=== PATIENT | female | born 1960 | race Caucasian/White ===

== ENCOUNTER → 2017-01-15 | Outpatient (CLI) | payer BC ==
--- NOTE | 2017-01-16 11:42 | MM ---
Reason for exam: screening (asymptomatic). Last mammogram was performed 1 year and 5 months ago. History: Patient is postmenopausal. Family history of breast cancer in maternal grandmother at age 60 and breast cancer in mother at age 65. Took hormonal contraceptives for 3 years beginning at age 43. Physical Findings: A clinical breast exam by your physician is recommended on an annual basis and results should be correlated with mammographic findings. MG Screening Mammo w CAD Bilateral CC and MLO view(s) were taken. Prior study comparison: August 07, 2015, bilateral MG screening mammo w CAD. June 26, 2014, bilateral MG screening mammo w CAD. There are scattered fibroglandular densities. Stable benign calcifications in the left breast. Stable focal asymmetry in the left breast since 2012. No significant changes when compared with prior studies. ASSESSMENT: Benign, BI-RAD 2 RECOMMENDATION: Routine screening mammogram of both breasts in 1 year.
== END ==
LOC: RADMAMWWP 15:52
PROVIDERS: ATTEND Family Medicine
DX: Z12.31 Encounter for screening mammogram for malignant neoplasm of breast (principal)

== ENCOUNTER → 2017-12-22 | Outpatient (CLI) | payer BC ==
--- NOTE | 2017-12-23 11:33 | BD ---
EXAMINATION TYPE: Axial Bone Density DATE OF EXAM: 12/22/2017 COMPARISON: 06.26.2014 CLINICAL HISTORY: 57 YR OLD FEMALE.....ICD-10 CODE: M81.0 AGE RELATED OSTEOPOROSIS Height: 61.8 Weight: 110 FRAX RISK QUESTIONS: Family History (Parent hip fracture): YES Glucocorticoids (More than 3mos): YES (Ex: prednisone, prednisolone, methylprednisolone, dexamethasone, and hydrocortisone). RISK FACTORS HISTORY OF: Family History of Osteoporosis: YES, MOTHER WITH HIP FXS Active: YES Diet low in dairy products/other sources of calcium: YES Postmenopausal woman: YES, LATE 40s MEDICATIONS: Prednisone or other steroids: ASTHMA INHALER How Lon YRS Osteoporosis Medications: ACTENOL How Long: FOR ABOUT 5 YRS Additional Medications: CYMBALTA, ANTI ANXIETY MED, VIT D3, Additional History: ANXIETY, ASTHMA EXAM MEASUREMENTS: Bone mineral densitometry was performed using the [employer] System. Bone mineral density as measured about the Lumbar spine is: ----- L1-L4(G/cm2): 0.897 T Score Values are as follows: ----- L1: -2.1 ----- L2: -2.7 ----- L3: -2.4 ----- L4: -2.3 ----- L1-L4: -2.4 Bone mineral density has: Decreased -0.7% SINCE 06.26.2014 Bone mineral density about the R hip (g/cm2): 0.684 Bone mineral density about the L hip (g/cm2): 0.715 T Score values are as follows: -----R Neck: -3.0 -----L Neck: -2.3 -----R Total: -2.3 -----L Total: -2.6 Bone mineral density has: Decreased -8.1% SINCE 06.26.2014 FRAX%S: THERE IS A 33.9% CHANCE OF A MAJOR OSTEOPOROTIC FX AND A 7.1% CHANCE FOR HIP FX.....PROBAB ILITY OF FX IN 10 YRS TIME IMPRESSION: 1. Osteoporosis left hip and near osteoporosis of the lumbar spine and right hip. High fracture risk. NOTE: T-SCORE=SD OF THE YOUNG ADULT MEAN.
== END | disposition home or self-care (01) ==
LOC: RADBDWWP 14:59
PROVIDERS: ATTEND Family Medicine
DX: M81.0 Age-related osteoporosis without current pathological fracture (principal)
CPT/HCPCS: 77080

== ENCOUNTER → 2018-04-05 | Outpatient (CLI) | payer BC ==
--- NOTE | 2018-04-07 09:33 | MM ---
Reason for exam: screening (asymptomatic). Last mammogram was performed 1 year and 3 months ago. History: Patient is postmenopausal. Family history of breast cancer in maternal grandmother at age 60 and breast cancer in mother at age 65. Took hormonal contraceptives for 3 years beginning at age 43. Physical Findings: A clinical breast exam by your physician is recommended on an annual basis and results should be correlated with mammographic findings. MG 3D Screening Mammo W/Cad Bilateral CC and MLO view(s) were taken. Prior study comparison: January 15, 2017, bilateral MG screening mammo w CAD. August 07, 2015, bilateral MG screening mammo w CAD. There are scattered fibroglandular densities. Stable fat necrosis and focal asymmetry left upper outer quadrant. Lateral subareolar left focal asymmetry increased. Stable on the right. ASSESSMENT: Incomplete: need additional imaging evaluation, BI-RAD 0 RECOMMENDATION: Special view mammogram of the left breast. If lesion persists on supplemental views, image directed ultrasound is recommended. [facility] will attempt to contact patient to return for supplemental views and ultrasound if indicated.
== END ==
LOC: RADMAMWWP 14:57
PROVIDERS: ATTEND Family Medicine
DX: Z12.31 Encounter for screening mammogram for malignant neoplasm of breast (principal)
CPT/HCPCS: 77063; 77067

== ENCOUNTER → 2018-04-14 | Outpatient (CLI) | payer BC ==
--- NOTE | 2018-04-15 09:26 | MM ---
Reason for exam: additional evaluation requested from abnormal screening. Last mammogram was performed less than 1 month ago. History: Patient is postmenopausal. Family history of breast cancer in maternal grandmother at age 60 and breast cancer in mother at age 65. Took hormonal contraceptives for 3 years beginning at age 43. Physical Findings: Nurse did not find any significant physical abnormalities on exam. MG 3D Work Up W/Cad LT CC and MLO view(s) were taken of the left breast. Prior study comparison: April 05, 2018, bilateral MG 3d screening mammo w/cad. January 15, 2017, bilateral MG screening mammo w CAD. Focal asymmetry left retroareolar region. Ultrasound is recommended. These results were verbally communicated with the patient and result sheet given to the patient on 04/14/18. ASSESSMENT: Incomplete: need additional imaging evaluation, BI-RAD 0 RECOMMENDATION: Ultrasound of the left breast.
--- NOTE | 2018-04-15 09:34 | USB ---
Reason for exam: additional evaluation requested from abnormal screening. History: Patient is postmenopausal. Family history of breast cancer in maternal grandmother at age 60 and breast cancer in mother at age 65. Took hormonal contraceptives for 3 years beginning at age 43. US Breast Workup Limited LT Left limited breast ultrasound including focal area of concern, retroareolar and axilla demonstrates a 4 x 2 x 4mm oval, cystic lesion at 1 o'clock and duct ectasia at the posterior nipple. These results were verbally communicated with the patient and result sheet given to the patient on 04/14/18. ASSESSMENT: Probably benign, BI-RAD 3 RECOMMENDATION: Follow-up diagnostic mammogram of the left breast in 6 months.
== END | disposition home or self-care (01) ==
LOC: RADMAMWWP 15:00
PROVIDERS: ATTEND Family Medicine
DX: R92.8 Other abnormal and inconclusive findings on diagnostic imaging of breast (principal)
CPT/HCPCS: 77061; 77065

== ENCOUNTER → 2018-10-29 | Outpatient (CLI) | payer OTHER ==
--- NOTE | 2018-11-01 10:07 | MM ---
Reason for exam: follow-up at short interval from prior study. Last mammogram was performed 7 months ago. History: Patient is postmenopausal. Family history of breast cancer in maternal grandmother at age 60 and breast cancer in mother at age 65. Took hormonal contraceptives for 3 years beginning at age 43. Physical Findings: Nurse did not find any significant physical abnormalities on exam. MG 3D Diag Mammo W/Cad LT CC, MLO, spot compression CC, and spot compression ML view(s) were taken of the left breast. Prior study comparison: April 14, 2018, left breast MG 3d work up w/cad LT. April 05, 2018, bilateral MG 3d screening mammo w/cad. The breast tissue is heterogeneously dense. This may lower the sensitivity of mammography. Stable benign calcifications. Improved retroareolar density left breast. These results were verbally communicated with the patient and result sheet given to the patient on 10/29/18. ASSESSMENT: Benign, BI-RAD 2 RECOMMENDATION: Return to routine screening mammogram schedule for both breasts. Back on schedule.
== END | disposition home or self-care (01) ==
LOC: RADMAMWWP 15:40
PROVIDERS: ATTEND Family Medicine
DX: R92.8 Other abnormal and inconclusive findings on diagnostic imaging of breast (principal)
CPT/HCPCS: 77061; 77065

== ENCOUNTER → 2021-05-20 | Outpatient (CLI) | payer OTHER ==
--- NOTE | 2021-05-22 10:30 | MM ---
Reason for exam: screening (asymptomatic). Last mammogram was performed 2 years and 7 months ago. History: Patient is postmenopausal. Family history of breast cancer in maternal grandmother at age 60 and breast cancer in mother at age 65. Took hormonal contraceptives for 3 years beginning at age 43. Physical Findings: A clinical breast exam by your physician is recommended on an annual basis and results should be correlated with mammographic findings. MG 3D Screening Mammo W/Cad Bilateral CC and MLO view(s) were taken. Prior study comparison: October 29, 2018, left breast MG 3d diag mammo w/cad LT. April 14, 2018, left breast MG 3d work up w/cad LT. April 05, 2018, bilateral MG 3d screening mammo w/cad. January 15, 2017, bilateral MG screening mammo w CAD. There are scattered fibroglandular densities. Finding: There is an equal, indistinct architectural distortion in the upper outer quadrant, middle position of the left breast. New finding since October 29, 2018, April 14, 2018, April 05, 2018, and January 15, 2017. ASSESSMENT: Incomplete: need additional imaging evaluation, BI-RAD 0 RECOMMENDATION: Special view mammogram of the left breast. If lesion persists on supplemental views, image directed ultrasound is recommended. [facility] will attempt to contact patient to return for supplemental views and ultrasound if indicated.
== END | disposition home or self-care (01) ==
LOC: RADMAMWWP 14:53
PROVIDERS: ATTEND Family Medicine
DX: Z12.31 Encounter for screening mammogram for malignant neoplasm of breast (principal); Z80.3 Family history of malignant neoplasm of breast
CPT/HCPCS: 77063; 77067

== ENCOUNTER → 2021-05-29 | Outpatient (CLI) | payer OTHER ==
--- NOTE | 2021-05-30 12:19 | MM ---
Reason for exam: additional evaluation requested from abnormal screening. Last mammogram was performed less than 1 month ago. History: Patient is postmenopausal. Family history of breast cancer in maternal grandmother at age 60 and breast cancer in mother at age 65. Took hormonal contraceptives for 3 years beginning at age 43. Physical Findings: Nurse did not find any significant physical abnormalities on exam. MG 3D Work Up W/Cad LT Spot compression CC, spot compression MLO, and LM view(s) were taken of the left breast. Prior study comparison: May 20, 2021, bilateral MG 3d screening mammo w/cad. October 29, 2018, left breast MG 3d diag mammo w/cad LT. April 14, 2018, left breast MG 3d work up w/cad LT. April 05, 2018, bilateral MG 3d screening mammo w/cad. There are scattered fibroglandular densities. Questioned distortion upper outer quadrant does not clearly persist on additional views. Course calcifications here are similar. Density likely more pronounced due to C-view technique. These results were verbally communicated with the patient and result sheet given to the patient on 05/29/21. ASSESSMENT: Probably benign, BI-RAD 3 RECOMMENDATION: Follow-up diagnostic mammogram of the left breast in 6 months.
== END | disposition home or self-care (01) ==
LOC: RADMAMWWP 14:49
PROVIDERS: ATTEND Family Medicine
DX: R92.1 Mammographic calcification found on diagnostic imaging of breast (principal); Z80.3 Family history of malignant neoplasm of breast
CPT/HCPCS: 77061; 77065

== ENCOUNTER → 2022-02-05 | Outpatient (CLI) | payer OTHER ==
--- NOTE | 2022-02-05 15:27 | BD ---
EXAMINATION TYPE: Axial Bone Density DATE OF EXAM: 02/05/2022 COMPARISON: NONE CLINICAL HISTORY: 61 years year old Female. ICD-10 CODE: M85.88 OTH DISRD OF BONE DENSITY AND STRUCT URE Height: 5 FT 2 IN Weight: 116 FRAX RISK QUESTIONS: Alcohol (3 or more units per day): NO Family History (Parent hip fracture): YES Glucocorticoids (More than 3mos): YES (Ex: prednisone, prednisolone, methylprednisolone, dexamethasone, and hydrocortisone). History of Fracture in Adulthood: NO Secondary Osteoporosis: 1. Type 1 Diabetes: NO 2. Hyperthyroidism: NO 3. Menopause before 45: NO 4. Malnutrition: NO 5. Chronic liver disease: NO Rheumatoid Arthritis: YES Current Tobacco Use: MARIJUANA RISK FACTORS HISTORY OF: Surgery to Spine/Hip(right/left)/Wrist (right/left): NO Family History of Osteoporosis: YES Active: YES Diet low in dairy products/other sources of calcium: NO Postmenopausal woman: YES Take estrogen and/or progesterone medications: NO Lost more than 2 inches in height since high school:NO Frequent falls: NO Poor Health: FIBROMYALGIA Hyperparathyroidism: NO Adrenal Insufficiency: NO MEDICATIONS: Additional Medications: FLOMAX, INHALER, FLEXER ALL, CLONOPIN, VELSOMRA , Additional History: ASTHMA EXAM MEASUREMENTS: Bone mineral densitometry was performed using the [employer] System. Bone mineral density as measured about the Lumbar spine is: ----- L1-L4(G/cm2): 0.821 T Score Values are as follows: ----- L1: -2.9 ----- L2: -3.0 ----- L3: -2.9 ----- L4: -3.2 ----- L1-L4: -3.0 Bone mineral density has: DECREASED -7.7 % since study of: 2018 Bone mineral density about the R hip (g/cm2): 0.650 Bone mineral density about the L hip (g/cm2): 0.580 T Score values are as follows: -----R Neck: -2.8 -----L Neck: -3.3 -----R Total: -2.6 -----L Total: -2.7 Bone mineral density has: DECREASED -4.0 % since study of: 2018 FRAX%s: The graph provided illustrates a 41.9 % chance for a major osteoporotic fx and a 11.4 % chanc e for the hips probability for fx in 10 years time. IMPRESSION: Osteoporosis (T Score less than -2.5). There is increased fracture risk and therapy is usually indicated based on age. Re-Screen 1-2 years. NOTE: T-SCORE=SD OF THE YOUNG ADULT MEAN.
== END | disposition home or self-care (01) ==
LOC: RADBDWWP 14:01
PROVIDERS: ATTEND Internal Medicine
DX: M81.0 Age-related osteoporosis without current pathological fracture (principal)
CPT/HCPCS: 77080

== ENCOUNTER → 2022-02-05 | Outpatient (CLI) | payer OTHER ==
--- NOTE | 2022-02-05 14:36 | MM ---
Reason for Exam: Follow-up at short interval from prior study. Last screening mammogram was performed 8 month(s) ago. Patient History: Menarche at age 10. First Full-Term at age 25. Left ovary removed at age 54. Right ovary removed at age 54. Hysterectomy at age 54. Postmenopausal. Hormonal Contraceptives for 3 years from age 43 until age 46. Maternal grandmother had breast cancer, age 60. Mother had breast cancer, age 65. Risk Values: Latrice 5 year model risk: 3.1%. NCI Lifetime model risk: 12.8%. Prior Study Comparison: 10/29/2018 Left Diagnostic Mammogram, [facility]. 05/20/2021 Bilateral Screening Mammogram, [facility]. 05/29/2021 Left Diagnostic Mammogram, [facility]. Tissue Density: Left: The breast tissue is heterogeneously dense. This may lower the sensitivity of mammography. Findings: Analyzed By CAD. Persistent asymmetric density upper outer left breast unchanged. Benign calcifications left breast are stable as well. Overall Assessment: Benign, BI-RAD 2 Management: Screening Mammogram of both breasts in 6 months. A clinical breast exam by your physician is recommended on an annual basis and results should be correlated with mammographic findings. This exam should not preclude additional follow-up of suspicious palpable abnormalities. Results were given to the patient verbally at the time of exam. Electronically signed and approved by: Hung Earl M.D. Radiologis
== END | disposition home or self-care (01) ==
LOC: RADMAMWWP 13:59
PROVIDERS: ATTEND Family Medicine
DX: R92.8 Other abnormal and inconclusive findings on diagnostic imaging of breast (principal); Z78.0 Asymptomatic menopausal state; Z80.3 Family history of malignant neoplasm of breast
CPT/HCPCS: 77061; 77065

== ENCOUNTER 2023-02-25 15:49 | Emergency (ER) | payer MEDICARE, OTHER ==
[2023-02-25 15:59] VITALS: BP 177/87; PULSE 87; TEMP 98.1
[2023-02-25 16:28] VITALS: RESP 18
--- NOTE | 2023-02-25 16:35 | XR ---
EXAMINATION TYPE: XR chest 2V DATE OF EXAM: 02/25/2023 4:29 PM COMPARISON: Chest radiographs from 06/11/2018 TECHNIQUE: XR chest 2V Frontal and lateral views of the chest. CLINICAL INDICATION:Female, 63 years old with history of Difficulty breathing ; FINDINGS: Lungs/Pleura: Hyperinflation. No evidence of pneumothorax, pleural effusion or focal consolidation. Pulmonary vascularity: Unremarkable. Heart/mediastinum: Cardiomediastinal silhouette is unremarkable. Musculoskeletal: No acute osseous pathology. Mild levoscoliotic curvature of the thoracic spine. IMPRESSION: 1. No acute cardiopulmonary disease process. 2. Hyperinflation which can be seen with asthma versus COPD.
--- NOTE | 2023-02-25 18:15 | ED ---
General Adult HPI - General Chief complaint: Shortness of Breath Stated complaint: SOB Time Seen by Provider: 02/25/23 15:55 Source: patient, RN notes reviewed, old records reviewed Mode of arrival: ambulatory Limitations: no limitations - History of Present Illness Initial comments: This a 63-year-old female who claims that she has fibromyalgia and as a child had asthma. Patient states she's been having difficulty breathing every day at 3 AM. Patient states that she can't take steroids she can have albuterol treatments and she can't take any milk products because all those give her problems with breathing. Patient states she's had no fever she states she's had no cough but every day at 3:00 in the morning she wakes up and has a difficult time breathing. Patient is hyperverbal throughout the ER visit. Patient denies any chest pain patient denies any abdominal pain. - Related Data Home Medications Medication Instructions Recorded Confirmed Ipratropium [place] [Ipratropium 2 spray NASAL BID 02/25/23 02/25/23 [place] 0.03%] Allergies Allergy/AdvReac Type Severity Reaction Status Date / Time gluten Allergy Severe Unknown Verified 02/25/23 16:29 Review of Systems ROS Statement: Those systems with pertinent positive or pertinent negative responses have been documented in the HPI. ROS Other: All systems not noted in ROS Statement are negative. Past Medical History Past Medical History: Asthma, Fibromyalgia Additional Past Medical History / Comment(s): Celiac History of Any Multi-Drug Resistant Organisms: None Reported Past Surgical History: Hysterectomy Past Psychological History: Anxiety Smoking Status: Never smoker Past Alcohol Use History: None Reported Past Drug Use History: Marijuana General Exam - General Exam Comments Initial Comments: GENERAL: Patient is well-developed and well-nourished. Patient is nontoxic and well- hydrated and is in no acute distress. ENT: Neck is soft and supple. No significant lymphadenopathy is noted. Oropharynx is clear. Moist mucous membranes. Neck has full range of motion without eliciting any pain. EYES: The sclera were anicteric and conjunctiva were pink and moist. Extraocular movements were intact and pupils were equal round and reactive to light. Eyelids were unremarkable. PULMONARY: Unlabored respirations. Good breath sounds bilaterally. No audible rales rhonchi or wheezing was noted. CARDIOVASCULAR: There is a regular rate and rhythm without any murmurs gallops or rubs. ABDOMEN: Soft and nontender with normal bowel sounds. No palpable organomegaly was noted. There is no palpable pulsatile mass. SKIN: Skin is clear with no lesions or rashes and otherwise unremarkable. NEUROLOGIC: Patient is alert and oriented x3. Cranial nerves II through XII are grossly intact. Motor and sensory are also intact. Normal speech, volume and content. Symmetrical smile. MUSCULOSKELETAL: Normal extremities with adequate strength and full range of motion. LYMPHATICS: No significant lymphadenopathy is noted PSYCHIATRIC: Patient is very anxious and is talking and a mild minute without any respiratory distress. Patient has a lot of tangential thoughts thinking maybe it could be from some milk product they got into her system or may be some alcohol that was in some medication. Patient believes she has all these sensitivity secondary to fibromyalgia. Limitations: no limitations Course Vital Signs 02/25/23 02/25/23 15:55 16:27 Temperature 98.1 F Pulse Rate 87 Respiratory 24 18 Rate Blood Pressure 177/87 O2 Sat by Pulse 97 Oximetry Medical Decision Making - Medical Decision Making Was pt. sent in by a medical professional or institution (, PA, DIESEL TECHNICIAN MECHANIC, urgent care, hospital, or [facility]...) When possible be specific @ -No Did you speak to anyone other than the patient for history (EMS, parent, family, police, friend...)? What history was obtained from this source @ -No Did you review nursing and triage notes (agree or disagree)? Why? @ -I reviewed and agree with nursing and triage notes Were old charts reviewed (outside hosp., previous admission, EMS record, old EKG, old radiological studies, urgent care reports/EKG's, [facility] records)? Report findings @ -No old charts were reviewed Differential Diagnosis (chest pain, altered mental status, abdominal pain women, abdominal pain men, vaginal bleeding, weakness, fever, dyspnea, syncope, headache, dizziness, GI bleed, back pain, seizure, CVA, palpatations, mental health, musculoskeletal)? @ -Differential Dyspnea: Coronary syndrome, arrhythmia, tamponade, asthma, COPD, pulmonary embolism, pneumonia, pneumothorax, pulmonary effusion, anaphylaxis, diabetic ketoacidosis, flailed chest, pulmonary contusion, diaphragmatic rupture, anemia, neuromuscular, this is not meant to be an all-inclusive list. EKG interpreted by me (3pts min.). @ -As above X-rays interpreted by me (1pt min.). @ -Chest x-ray shows no acute abnormality CT interpreted by me (1pt min.). @ -None done U/S interpreted by me (1pt. min.). @ -None done What testing was considered but not performed or refused? (CT, X-rays, U/S, labs)? Why? @ -None What meds were considered but not given or refused? Why? @ -None Did you discuss the management of the patient with other professionals (professionals i.e. , PA, DIESEL TECHNICIAN MECHANIC, lab, RT, psych nurse, clinical social work aide, egg crater, teacher, chief safety officer, case fitter)? Give summary @ -No Was smoking cessation discussed for >3mins.? @ -No Was critical care preformed (if so, how long)? @ -No Were there social determinants of health that impacted care today? How? (Homelessness, low income, unemployed, alcoholism, drug addiction, transportati on, low edu. Level, literacy, decrease access to med. care, retirement, rehab)? @ -No Was there de-escalation of care discussed even if they declined (Discuss DNR or withdrawal of care, Hospice)? DNR status @ -No What co-morbidities impacted this encounter? (DM, HTN, Smoking, COPD, CAD, Cancer, CVA, ARF, Chemo, Hep., AIDS, mental health diagnosis, sleep apnea, morbid obesity)? @ -None Was patient admitted / discharged? Hospital course, mention meds given and route, prescriptions, significant lab abnormalities, going to OR and other pertinent info. @ -I went back into the room and gave the patient the checks x-ray results she had stable vitals oxygenating well and in no apparent distress. Patient since I left the room had determined that she had taken some [place]k fruit 2 weeks ago and she believes now that is the cause of all of her problems. I indicated to her I did not think that the Monk fruit was still in her system. She was very upset that I did not believe that the Monk fruit was causing her symptoms from 2 weeks ago. She refused to accept an inhaler prescription because she states the inhaler has alcohol and she cannot take anything with alcohol in it. Patient stormed out of the emergency department leaving AMA Undiagnosed new problem with uncertain prognosis? @ -No Drug Therapy requiring intensive monitoring for toxicity (Heparin, Nitro, Insulin, Cardizem)? @ -No Were any procedures done? @ -No Diagnosis/symptom? @ -Anxiety Acute, or Chronic, or Acute on Chronic? @ -Acute Uncomplicated (without systemic symptoms) or Complicated (systemic symptoms)? @ -Uncomplicated Side effects of treatment? @ -No Exacerbation, Progression, or Severe Exacerbation? @ -No Poses a threat to life or bodily function? How? (Chest pain, [place], [place], pneumonia, PE, COPD, DKA, ARF, appy, cholecystitis, CVA, Diverticulitis, Homicidal, Suicidal, threat to staff... and all critical care pts) @ -No Disposition Clinical Impression: Anxiety Disposition: LEFT AGAINST MEDICAL ADVICE Instructions (If sedation given, give patient instructions): Generalized Anxiety Disorder (ED) Is patient prescribed a controlled substance at d/c from ED?: No Referrals: Elvia López MD [Primary Care Provider] - 1-2 days Time of Disposition: 18:15
== END 2023-02-25 18:23 | disposition left against medical advice (07) ==
LOC: EC 15:49
DX: F41.9 Anxiety disorder, unspecified (principal); J45.909 Unspecified asthma, uncomplicated; F12.90 Cannabis use, unspecified, uncomplicated; Z88.8 Allergy status to other drugs, medicaments and biological substances; Z53.29 Procedure and treatment not carried out because of patient's decision for other reasons
CPT/HCPCS: 71046; 99284

== ENCOUNTER 2023-03-05 17:33 | Observation (INO) | payer MEDICARE ==
--- NOTE | 2023-03-05 19:06 | ED ---
General Adult HPI - General Chief complaint: Chest Pain Stated complaint: edema, heart palpitations, pain in chest, sob Time Seen by Provider: 03/05/23 18:30 Source: patient Mode of arrival: ambulatory Limitations: no limitations - History of Present Illness Initial comments: Layne is a 63-year-old female presents the emergency department today for evalu ation of multiple complaints. Patient reports that over the past 2 months she's been experiencing paroxysmal nocturnal dyspnea, orthopnea, lower extremity edema. She has a nonproductive cough. She occasionally has tightness in her chest and occasionally sharp pains in her chest. She has no known cardiac history. She does have a family history of cardiac disease. She is a former smoker. - Related Data Home Medications Medication Instructions Recorded Confirmed Ipratropium [place] [Ipratropium 2 spray NASAL BID 02/25/23 02/25/23 [place] 0.03%] Allergies Allergy/AdvReac Type Severity Reaction Status Date / Time gluten Allergy Severe Unknown Verified 03/05/23 21:25 Review of Systems ROS Statement: Those systems with pertinent positive or pertinent negative responses have been documented in the HPI. ROS Other: All systems not noted in ROS Statement are negative. Past Medical History Past Medical History: Asthma, Fibromyalgia Additional Past Medical History / Comment(s): Celiac History of Any Multi-Drug Resistant Organisms: None Reported Past Surgical History: Hysterectomy Past Psychological History: Anxiety Smoking Status: Never smoker Past Alcohol Use History: None Reported Past Drug Use History: Marijuana General Exam - General Exam Comments Initial Comments: Physical Exam GENERAL: Patient is well-developed and well-nourished. Patient is nontoxic and well- hydrated and is in no distress. HENT: Normocephalic, Atraumatic. EYES: PERRL, EOMI PULMONARY: Mild expiratory wheezing noted CARDIOVASCULAR: There is a regular rate and rhythm without any murmurs gallops or rubs. 1+ pitting edema bilateral lower extremities ABDOMEN: Soft and nontender with normal bowel sounds. SKIN: Skin is clear with no lesions or rashes and otherwise unremarkable. : Deferred NEUROLOGIC: Patient is alert and oriented x3. Moving all extremities spontaneously MUSCULOSKELETAL: Normal extremities with adequate strength and full range of motion PSYCHIATRIC: Normal psychiatric evaluation. Limitations: no limitations Course Vital Signs 03/05/23 03/05/23 18:00 20:30 Temperature 98.6 F Pulse Rate 89 97 Respiratory 20 20 Rate Blood Pressure 177/81 168/92 O2 Sat by Pulse 96 93 L Oximetry EKG Findings - EKG Comments: EKG Findings:: EKG was interpreted by me, EKG was obtained due to shortness of breath and intermittent chest pain. EKG was obtained at 1810, EKG with rate of 82 sinus rhythm pulmonary pattern, no acute ST elevations or depressions or evidence of acute ischemia or infarction. Medical Decision Making - Medical Decision Making Was pt. sent in by a medical professional or institution (, PA, LICENSED AUDIOLOGIST, urgent care, hospital, or long-term...) When possible be specific @ -Sent by primary care provider Did you speak to anyone other than the patient for history (EMS, parent, family, police, friend...)? What history was obtained from this source @ - Did you review nursing and triage notes (agree or disagree)? Why? @ -I reviewed and agree with nursing and triage notes Were old charts reviewed (outside hosp., previous admission, EMS record, old EKG, old radiological studies, urgent care reports/EKG's, long-term records)? Report findings @ -No old charts were reviewed Differential Diagnosis (chest pain, altered mental status, abdominal pain women, abdominal pain men, vaginal bleeding, weakness, fever, dyspnea, syncope, headache, dizziness, GI bleed, back pain, seizure, CVA, palpatations, mental health, musculoskeletal)? @ -Differential Chest Pain: Stable Angina, Unstable Angina, STEMI, NSTEMI Aortic Dissection, Pneumothorax, Musculoskeletal, Esophageal Spasm GERD, Cholecystitis, Pancreatitis, Zoster, this is not meant to be an all-inclusive list. Differential Dyspnea: Coronary syndrome, arrhythmia, tamponade, asthma, COPD, pulmonary embolism, pneumonia, pneumothorax, pulmonary effusion, anaphylaxis, diabetic ketoacidosis, flailed chest, pulmonary contusion, diaphragmatic rupture, anemia, neuromuscular, this is not meant to be an all-inclusive list. EKG interpreted by me (3pts min.). @ -As above X-rays interpreted by me (1pt min.). @ -No pleural effusions, no pneumothorax no obvious consolidations CT interpreted by me (1pt min.). @ -None done U/S interpreted by me (1pt. min.). @ -None done What testing was considered but not performed or refused? (CT, X-rays, U/S, labs)? Why? @ -Echo, can be performed and patient What meds were considered but not given or refused? Why? @ -None Did you discuss the management of the patient with other professionals (professionals i.e. , PA, LICENSED AUDIOLOGIST, lab, RT, psych nurse, social work faculty member, detective bureau chief, teacher, probation officer, vocational case manager)? Give summary @ -No Was smoking cessation discussed for >3mins.? @ -No Was critical care preformed (if so, how long)? @ -No Were there social determinants of health that impacted care today? How? (Homelessness, low income, unemployed, alcoholism, drug addiction, transportation, low edu. Level, literacy, decrease access to med. care, care home, r ehab)? @ -No Was there de-escalation of care discussed even if they declined (Discuss DNR or withdrawal of care, Hospice)? DNR status @ -No What co-morbidities impacted this encounter? (DM, HTN, Smoking, COPD, CAD, Cancer, CVA, ARF, Chemo, Hep., AIDS, mental health diagnosis, sleep apnea, morbid obesity)? @ -None Was patient admitted / discharged? Hospital course, mention meds given and route, prescriptions, significant lab abnormalities, going to OR and other pertinent info. @ -The patient was seen and evaluated history was obtained from patient history is concerning for possible CHF patient does have some wheezing DuoNeb's were given. Labs are unremarkable however given the patient's history and symptoms decision made to place in observation for echo and cardiac evaluation. Undiagnosed new problem with uncertain prognosis? @ -No Drug Therapy requiring intensive monitoring for toxicity (Heparin, Nitro, Insulin, Cardizem)? @ -No Were any procedures done? @ -No Diagnosis/symptom? @ -Dyspnea Acute, or Chronic, or Acute on Chronic? @ -default Uncomplicated (without systemic symptoms) or Complicated (systemic symptoms)? @ -default Side effects of treatment? @ -No Exacerbation, Progression, or Severe Exacerbation? @ -No Poses a threat to life or bodily function? How? (Chest pain, [place], OR, pneumonia, PE, COPD, DKA, ARF, appy, cholecystitis, CVA, Diverticulitis, Homicidal, Suicidal, threat to staff... and all critical care pts) @ -No - Lab Data Result diagrams: 03/05/23 19:00 03/05/23 19:00 Lab Results 03/05/23 03/05/23 03/05/23 Range/Units 19:00 19:00 19:00 WBC 10.3 (3.8-10.6) k/uL RBC 4.99 (3.80-5.40) m/uL Hgb 15.9 (11.4-16.0) gm/dL Hct 47.7 H (34.0-46.0) % MCV 95.5 (80.0-100.0) fL MCH 31.9 (25.0-35.0) pg MCHC 33.4 (31.0-37.0) g/dL RDW 12.2 (11.5-15.5) % Plt Count 332 (150-450) k/uL MPV 9.1 Neutrophils % 52 % Lymphocytes % 25 % Monocytes % 9 % Eosinophils % 12 % Basophils % 1 % Neutrophils # 5.3 (1.3-7.7) k/uL Lymphocytes # 2.6 (1.0-4.8) k/uL Monocytes # 0.9 (0-1.0) k/uL Eosinophils # 1.2 H (0-0.7) k/uL Basophils # 0.1 (0-0.2) k/uL PT 10.4 (9.0-12.0) sec INR 1.0 (<1.2) APTT 23.8 (22.0-30.0) sec Sodium 136 L (137-145) mmol/L Potassium 4.3 (3.5-5.1) mmol/L Chloride 104 (98-107) mmol/L Carbon Dioxide 24 (22-30) mmol/L Anion Gap 8 mmol/L BUN 19 H (7-17) mg/dL Creatinine 0.49 L (0.52-1.04) mg/dL Est GFR (CKD-EPI)AfAm >90 (>60 ml/min/1.73 sqM) Est GFR (CKD-EPI)NonAf >90 (>60 ml/min/1.73 sqM) Glucose 81 (74-99) mg/dL Calcium 9.1 (8.4-10.2) mg/dL Magnesium 2.2 (1.6-2.3) mg/dL Total Bilirubin 0.4 (0.2-1.3) mg/dL AST 39 H (14-36) U/L ALT 40 H (4-34) U/L Alkaline Phosphatase 81 (38-126) U/L Troponin I (0.000-0.034) ng/mL NT-Pro-B Natriuret Pep 67 pg/mL Total Protein 7.5 (6.3-8.2) g/dL Albumin 4.3 (3.5-5.0) g/dL 03/05/23 Range/Units 19:00 WBC (3.8-10.6) k/uL RBC (3.80-5.40) m/uL Hgb (11.4-16.0) gm/dL Hct (34.0-46.0) % MCV (80.0-100.0) fL MCH (25.0-35.0) pg MCHC (31.0-37.0) g/dL RDW (11.5-15.5) % Plt Count (150-450) k/uL MPV Neutrophils % % Lymphocytes % % Monocytes % % Eosinophils % % Basophils % % Neutrophils # (1.3-7.7) k/uL Lymphocytes # (1.0-4.8) k/uL Monocytes # (0-1.0) k/uL Eosinophils # (0-0.7) k/uL Basophils # (0-0.2) k/uL PT (9.0-12.0) sec INR (<1.2) APTT (22.0-30.0) sec Sodium (137-145) mmol/L Potassium (3.5-5.1) mmol/L Chloride (98-107) mmol/L Carbon Dioxide (22-30) mmol/L Anion Gap mmol/L BUN (7-17) mg/dL Creatinine (0.52-1.04) mg/dL Est GFR (CKD-EPI)AfAm (>60 ml/min/1.73 sqM) Est GFR (CKD-EPI)NonAf (>60 ml/min/1.73 sqM) Glucose (74-99) mg/dL Calcium (8.4-10.2) mg/dL Magnesium (1.6-2.3) mg/dL Total Bilirubin (0.2-1.3) mg/dL AST (14-36) U/L ALT (4-34) U/L Alkaline Phosphatase (38-126) U/L Troponin I <0.012 (0.000-0.034) ng/mL NT-Pro-B Natriuret Pep pg/mL Total Protein (6.3-8.2) g/dL Albumin (3.5-5.0) g/dL Disposition Clinical Impression: Chest pain Disposition: ADMITTED IP TO THIS HOSP Condition: Stable Is patient prescribed a controlled substance at d/c from ED?: No Referrals: Elvia López MD [Primary Care Provider] - 1-2 days
--- NOTE | 2023-03-05 19:28 | XR ---
EXAMINATION TYPE: XR chest 2V DATE OF EXAM: 03/05/2023 COMPARISON: 02/25/23 HISTORY: Shortness of breath TECHNIQUE: Frontal and lateral views of the chest are obtained. FINDINGS: Scattered senescent parenchymal changes noted. Hyperinflation compatible with COPD. No evidence for infiltrate. No evidence for atelectasis. Heart size is stable. Mediastinal structures are stable and grossly unremarkable. No evidence for hilar prominence. Degenerative changes dorsal spine. IMPRESSION: 1. No evidence for acute pulmonary disease.
[2023-03-05 19:41] LABS: Basophils # (A) 0.1 k/uL (0-0.2); Basophils % (A) 1 %; Eosinophils # (A) 1.2 k/uL (0-0.7); Eosinophils % (A) 12 %; HCT 47.7 % (34.0-46.0); HGB 15.9 gm/dL (11.4-16.0); Lymphocytes # (A) 2.6 k/uL (1.0-4.8); Lymphocytes % (A) 25 %; MCH 31.9 pg (25.0-35.0); MCHC 33.4 g/dL (31.0-37.0); MCV 95.5 fL (80.0-100.0); Mean Platelet Volume 9.1; Monocytes # (A) 0.9 k/uL (0-1.0); Monocytes % (A) 9 %; Neutrophils # (A) 5.3 k/uL (1.3-7.7); Neutrophils % (A) 52 %; Platelet Count 332 k/uL (150-450); RBC 4.99 m/uL (3.80-5.40); RDW 12.2 % (11.5-15.5); WBC 10.3 k/uL (3.8-10.6)
[2023-03-05 19:51] LABS: ALT 40 U/L (4-34); AST 39 U/L (14-36); African American GFR (CKD) >90 (>60 ml/min/1.73 sqM); Albumin 4.3 g/dL (3.5-5.0); Alkaline Phosphatase 81 U/L (38-126); Anion Gap 8 mmol/L; Blood Urea Nitrogen 19 mg/dL (7-17); Calcium 9.1 mg/dL (8.4-10.2); Carbon Dioxide 24 mmol/L (22-30); Chloride 104 mmol/L (98-107); Glucose 81 mg/dL (74-99); Magnesium 2.2 mg/dL (1.6-2.3); Non-African American GFR(CKD) >90 (>60 ml/min/1.73 sqM); Potassium 4.3 mmol/L (3.5-5.1); Sodium 136 mmol/L (137-145); Total Bilirubin 0.4 mg/dL (0.2-1.3); Total Protein 7.5 g/dL (6.3-8.2)
[2023-03-05 19:56] LABS: Partial Thromboplastin Time 23.8 sec (22.0-30.0); Prothrombin Time 10.4 sec (9.0-12.0)
[2023-03-05 20:00] LABS: NT-Pro-B-Type Natriuretic Pept 67 pg/mL
[2023-03-05] MEDS ORDERED: IPRATROPIUM-ALBUTEROL 3 ML NEB INHALATION STA (20:52)
--- NOTE | 2023-03-05 21:25 | CT ---
EXAMINATION TYPE: CT chest angio for PE DATE OF EXAM: 03/05/2023 COMPARISON: None HISTORY: Dyspnea. Cough. CT DLP: 183.2 mGycm CONTRAST: CT chest with contrast and 3D reconstruction with MIP imaging is performed with IV Contrast, patient injected with 100 ml mL of Isovue 370. Contrast-enhanced CT of the chest was performed through the course of the pulmonary arteries with danisha g and mediastinal window settings submitted. 3D reconstruction with MIP imaging was also performed. PULMONARY ARTERIES: The pulmonary arteries and their major tributaries are patent. I do not see pop dence for sizable filling defect to suggest pulmonary embolic process. LUNGS: The lungs are clear and free of infiltrate. No evidence for atelectasis. No pulmonary nodule or mass is detected. No pleural effusion. There is scattered bronchial wall thickening. MEDIASTINUM: Thoracic aorta is of normal caliber. The heart is not enlarged. No evidence for medias tinal mass. No mediastinal lymph nodes greater than 1cm. HILAR STRUCTURES: No evidence for mass. No hilar lymph nodes greater than 1 cm. UPPER ABDOMEN: Nonobstructing left-sided nephrolithiasis. IMPRESSION: 1. No evidence for Pulmonary embolism at this time.
[2023-03-05] MEDS ORDERED: diphenhydrAMINE 50 MG/ML 1 ML VIAL IVP STA (23:22)
[2023-03-06] MEDS: MELATONIN 5 MG TABLET PO SCH ×2 (01:34→21:12)
--- NOTE | 2023-03-06 11:40 | P.CRDCN ---
History of Present Illness History of present illness: HISTORY OF PRESENT ILLNESS: This is a 63-year-old female with a past medical history significant for asthma. 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 We have been asked to see the patient in consultation for chest pain and shortness of breath. The patient was examined in the emergency room by Dr. Marion. She states that she came to the hospital for chief complaint of palpitations and feels like her heart has been racing. At the time of examination, she denied having any chest pain or pressure. Reports generalized aches and pain and is requesting medication to help with this. * EKG reveals sinus mechanism with no signs of acute ischemia * Chest xray negative for acute process * Chest CTA: Negative for pulmonary embolism * Laboratory data: WBC 10.3. Hemoglobin 15.9. Platelet count 332. Sodium 136. Potassium 4.3. BUN 19. Creatinine 0.49. Magnesium 2.2. Troponin negative 1. ProBNP 67. * Current home cardiac medications include none REVIEW OF SYSTEMS: At the time of my exam: CONSTITUTIONAL: Denies fever or chills. HEENT: Denies blurred vision, vision changes, or eye pain. Denies hemoptysis CARDIOVASCULAR: Denies chest pain. Denies orthopnea. Denies PND. Denies palpitations RESPIRATORY: Denies shortness of breath. GASTROINTESTINAL: Denies abdominal pain. Denies nausea or vomiting. HEMATOLOGIC: Denies bleeding disorders. GENITOURINARY: Denies any blood in urine. SKIN: Denies pruitis. Denies rash. PHYSICAL EXAM: VITAL SIGNS: Reviewed. GENERAL: Well-developed in no acute distress. HEENT: Head is normocephalic. Pupils are equal, round. Sclerae anicteric. Mucous membranes of the mouth are moist. Neck supple. No JVD or thyromegaly LUNGS: Respirations even and unlabored. Lungs essentially clear to auscultation bilaterally. HEART: Regular rate and rhythm. S1 and S2 heard. ABDOMEN: Soft. Nondistended. Nontender. EXTREMITIES: Normal range of motion. No clubbing or cyanosis. Peripheral pulses intact. No lower extremity edema NEUROLOGIC: Awake and alert. Oriented x 3. ASSESSMENT: Palpitations Generalized pain History of asthma PLAN: Obtain 2-D echo to assess cardiac structure and function Continue telemetry monitoring to assess for any arrhythmias Further recommendations pending patient's course Nurse practitioner note has been reviewed by physician. Signing provider agrees with the documented findings, assessment, and plan of care. Past Medical History Past Medical History: Asthma, Fibromyalgia Additional Past Medical History / Comment(s): Celiac History of Any Multi-Drug Resistant Organisms: None Reported Past Surgical History: Hysterectomy Past Psychological History: Anxiety Smoking Status: Never smoker Past Alcohol Use History: None Reported Past Drug Use History: Marijuana Medications and Allergies Home Medications Medication Instructions Recorded Confirmed Type Ipratropium [place] [Ipratropium 2 spray NASAL DIRECTED 02/25/23 03/05/23 History [place] 0.03%] Allergies Allergy/AdvReac Type Severity Reaction Status Date / Time gluten Allergy Severe Unknown Verified 03/05/23 21:25 Physical Exam Vitals: Vital Signs Temp Pulse Resp BP Pulse Ox 03/06/23 09:57 77 17 156/93 95 03/06/23 07:35 98 F 105 H 19 165/105 99 03/06/23 01:35 74 16 153/86 96 03/05/23 21:35 88 03/05/23 21:28 96 03/05/23 20:30 97 20 168/92 93 L 03/05/23 18:00 98.6 F 89 20 177/81 96 Intake and Output 03/05/23 03/06/23 03/06/23 22:59 06:59 14:59 Other: Weight 42.638 kg Results 03/05/23 19:00 03/05/23 19:00 Cardiac Enzymes 03/05/23 03/05/23 Range/Units 19:00 19:00 AST 39 H (14-36) U/L Troponin I <0.012 (0.000-0.034) ng/mL Coagulation 03/05/23 Range/Units 19:00 PT 10.4 (9.0-12.0) sec APTT 23.8 (22.0-30.0) sec CBC 03/05/23 Range/Units 19:00 WBC 10.3 (3.8-10.6) k/uL RBC 4.99 (3.80-5.40) m/uL Hgb 15.9 (11.4-16.0) gm/dL Hct 47.7 H (34.0-46.0) % Plt Count 332 (150-450) k/uL Comprehensive Metabolic Panel 03/05/23 Range/Units 19:00 Sodium 136 L (137-145) mmol/L Potassium 4.3 (3.5-5.1) mmol/L Chloride 104 (98-107) mmol/L Carbon Dioxide 24 (22-30) mmol/L BUN 19 H (7-17) mg/dL Creatinine 0.49 L (0.52-1.04) mg/dL Glucose 81 (74-99) mg/dL Calcium 9.1 (8.4-10.2) mg/dL AST 39 H (14-36) U/L ALT 40 H (4-34) U/L Alkaline Phosphatase 81 (38-126) U/L Total Protein 7.5 (6.3-8.2) g/dL Albumin 4.3 (3.5-5.0) g/dL Current Medications Generic Name Dose Route Start Last Admin Trade Name Jaronq PRN Reason Stop Dose Admin Melatonin 5 mg 03/06/23 01:23 03/06/23 01:34 Melatonin 5 Mg Tablet PO 5 mg [facility] Administration Intake and Output 03/05/23 03/06/23 03/06/23 22:59 06:59 14:59 Other: Weight 42.638 kg 03/05/23 19:00 03/05/23 19:00
[2023-03-06] MEDS ORDERED: IBUPROFEN 400 MG TAB PO PRN (12:57)
[2023-03-06] MEDS ORDERED: KETOROLAC 15 MG/ML 1 ML VIAL IVP STA (13:47)
[2023-03-06] MEDS ORDERED: diphenhydrAMINE 50 MG/ML 1 ML VIAL IVP PRN (15:43)
[2023-03-06] MEDS ORDERED: EPINEPHRINE 1 MG/ML INHALATION STA (15:43)
[2023-03-06] MEDS: FAMOTIDINE 20 MG/2 ML VIAL IV SCH (15:48)
[2023-03-06] MEDS ORDERED: MORPHINE SULFATE 2 MG/ML SYRINGE IVP STA (15:54)
[2023-03-06] MEDS ORDERED: IPRATROPIUM-ALBUTEROL 3 ML NEB INHALATION STA (15:54)
[2023-03-06] MEDS ORDERED: RACEPINEPHRINE 2.25% NEB 0.5 ML NEBU INHALATION STA (16:04)
--- NOTE | 2023-03-06 16:09 | XR ---
EXAMINATION TYPE: XR chest 1V DATE OF EXAM: 03/06/2023 COMPARISON: 03/05/2023 INDICATION: Short of breath TECHNIQUE: Single frontal view of the chest is obtained. FINDINGS: The heart size is normal. The pulmonary vasculature is normal. The lungs are clear. IMPRESSION: 1. No acute pulmonary process.
--- NOTE | 2023-03-06 16:38 | P.HPIM ---
History of Present Illness H&P Date: 03/06/23 Chief Complaint: Chest pain/palpitations 63-year-old female presents the emergency department today for evaluation of multiple complaints. Patient reports that over the past 2 months she's been experiencing paroxysmal nocturnal dyspnea, orthopnea, lower extremity edema. Ade joyner has a nonproductive cough. She occasionally has tightness in her chest and occasionally sharp pains in her chest. She has no known cardiac history. She does have a family history of cardiac disease. She is a former smoker. Patient reports back pain and requesting an anti-inflammatory; has been having cough which was initially nonproductive but now has been productive of yellow to greenish sputum; patient reports fevers and chills; patient reports history of COPD Blood work completed in ED reveals a WBC of 10.3, hemoglobin of 15.9 and platelet count of 332, sodium 136, potassium 4.3, BUN/creatinine of 19/0.49, AST/ALT mildly elevated at 39/40 Review of Systems REVIEW OF SYSTEMS: CONSTITUTIONAL: No fever, no malaise, no fatigue. HEENT: No recent visual problems or hearing problems. Denied any sore throat. CARDIOVASCULAR: No chest pain, orthopnea, PND, no palpitations, no syncope. PULMONARY: No shortness of breath, no cough, no hemoptysis. GASTROINTESTINAL: No diarrhea, no nausea, no vomiting, no abdominal pain. NEUROLOGICAL: No headaches, no weakness, no numbness. HEMATOLOGICAL: Denies any bleeding or petechiae. GENITOURINARY: Denies any burning micturition, frequency, or urgency. MUSCULOSKELETAL/RHEUMATOLOGICAL: Denies any joint pain, swelling, or any muscle pain. ENDOCRINE: Denies any polyuria or polydipsia. The rest of the 14-point review of systems is negative. Past Medical History Past Medical History: Asthma, Fibromyalgia Additional Past Medical History / Comment(s): Celiac History of Any Multi-Drug Resistant Organisms: None Reported Past Surgical History: Hysterectomy Past Psychological History: Anxiety Smoking Status: Never smoker Past Alcohol Use History: None Reported Past Drug Use History: Marijuana Medications and Allergies Home Medications Medication Instructions Recorded Confirmed Type Ipratropium [place] [Ipratropium 2 spray NASAL DIRECTED 02/25/23 03/05/23 History [place] 0.03%] Allergies Allergy/AdvReac Type Severity Reaction Status Date / Time gluten Allergy Severe Unknown Verified 03/05/23 21:25 Physical Exam Vitals: Vital Signs Temp Pulse Resp BP Pulse Ox 03/06/23 09:57 77 17 156/93 95 03/06/23 07:35 98 F 105 H 19 165/105 99 03/06/23 01:35 74 16 153/86 96 03/05/23 21:35 88 03/05/23 21:28 96 03/05/23 20:30 97 20 168/92 93 L 03/05/23 18:00 98.6 F 89 20 177/81 96 Intake and Output 03/05/23 03/06/23 03/06/23 22:59 06:59 14:59 Other: Weight 42.638 kg - Constitutional General appearance: Present: average body habitus, cooperative, no acute distress - EENT Eyes: Present: anicteric sclerae, EOMI, PERRLA, normal appearance ENT: Present: hearing grossly normal, normal oropharynx Ears: bilateral: normal - Neck Neck: Present: normal ROM. Absent: lymphadenopathy, rigidity, thyromegaly Carotids: negative: bruit present Thyroid: bilateral: normal size, negative: enlarged, nodule - Respiratory Respiratory: bilateral: CTA, negative: rales, rhonchi, wheezing - Cardiovascular Rhythm: regular Heart sounds: normal: S1, S2 Abnormal Heart Sounds: Absent: systolic murmur, diastolic murmur - Gastrointestinal General gastrointestinal: Present: normal bowel sounds, soft. Absent: distended, organomegaly, tenderness - Genitourinary Genitourinary Comment(s): deferred - Integumentary Integumentary: Present: normal turgor. Absent: jaundiced, rash, ulcer - Neurologic Neurologic: Present: CNII-XII intact. Absent: focal deficits - Musculoskeletal Musculoskeletal: Present: gait normal, strength equal bilaterally - Psychiatric Psychiatric: Present: A&O x's 3, appropriate affect, intact judgment & insight Results CBC & Chem 7: 03/05/23 19:00 03/05/23 19:00 Labs: Abnormal Lab Results - Last 24 Hours (Table) 03/05/23 03/05/23 Range/Units 19:00 19:00 Hct 47.7 H (34.0-46.0) % Eosinophils # 1.2 H (0-0.7) k/uL Sodium 136 L (137-145) mmol/L BUN 19 H (7-17) mg/dL Creatinine 0.49 L (0.52-1.04) mg/dL AST 39 H (14-36) U/L ALT 40 H (4-34) U/L Assessment and Plan Assessment: 1. Chest pain/palpitations - Patient will be admitted to telemetry; monitor EKG and trend troponin - 2-D echo is ordered and pending - Cardiology is consulted - We will order thyroid profile 2. Acute purulent bronchitis; start patient on doxycycline 100 mg by mouth twice a day; we will add albuterol inhaler 4 times a day and when necessary 3. Chronic back pain; patient reports stomach upset with oral anti-inflammatory medications and is requesting IV; we will add Toradol 15 mg IV every 6 hours when necessary 4. Mild transaminitis; etiology unclear; patient is currently not on any medications; we will trend liver enzymes and order hepatitis profile; we will order right upper quadrant ultrasound 5. Mild LISA; IV fluid hydration with normal saline at a rate of 100 mL an hour; we will monitor strict MAN's, daily weights, renal function and electrolytes; avoid nephrotoxins hypertension DVT prophylaxis; SCDs/subcu heparin CODE STATUS; full code
[2023-03-06 16:56] VITALS: RESP 16
--- NOTE | 2023-03-06 17:40 | CA ---
Transthoracic Echo Report Name: Layne Kaur Age: 63 Gender: F : 1960 Exam Date: 03/06/2023 13:53 Exam Location: [place] Echo Ht (in): 62 Wt (lb): 94 Ordering Physician: Laila Alegria Attending/Referring Phys: [id number], Airam Cash Van Salesperson Hermila Herrera [facility] Procedure CPT: Indications: LV function Cardiac Hx: Technical Quality: Fair Contrast 1: Total Dose (mL): Contrast 2: Total Dose (mL): MEASUREMENTS (Male / Female) Normal Values 2D ECHO LV Diastolic Diameter PLAX 3.3 cm 4.2 - 5.9 / 3.9 - 5.3 cm LV Systolic Diameter PLAX 2.2 cm IVS Diastolic Thickness 0.9 cm 0.6 - 1.0 / 0.6 - 0.9 cm LVPW Diastolic Thickness 0.9 cm 0.6 - 1.0 / 0.6 - 0.9 cm LV Relative Wall Thickness 0.6 Aortic Root Diameter 2.9 cm M-MODE Aortic Root Diameter MM 2.6 cm LA Systolic Diameter MM 2.0 cm LA Ao Ratio MM 0.7 AV Cusp Separation MM 2.0 cm DOPPLER AV Peak Velocity 110.3 cm/s AV Peak Gradient 4.9 mmHg AV Mean Velocity 81.4 cm/s AV Mean Gradient 2.9 mmHg AV Velocity Time Integral 19.7 cm Mitral E Point Velocity 58.3 cm/s Mitral A Point Velocity 78.3 cm/s Mitral E to A Ratio 0.7 MV Deceleration Time 173.1 ms LV E' Lateral Velocity 7.0 cm/s Mitral E to LV E' Lateral Ratio 8.3 LV E' Septal Velocity 7.0 cm/s Mitral E to LV E' Septal Ratio 8.3 FINDINGS Left Ventricle Left ventricular wall thickness normal. Small left ventricular cavity. Normal left ventricular systolic function with no obvious regional wall motion abnormalities. Left ventricular ejection fraction is estimated at 55-60%. Right Ventricle Right ventricle not well visualized. Right Atrium Normal right atrial size. Left Atrium Normal left atrial size. Mitral Valve Structurally normal mitral valve. Mild thickening/calcification of the posterior mitral valve leaflet. No mitral regurgitation. Aortic Valve Aortic valve not well visualized. No aortic regurgitation. Tricuspid Valve Tricuspid valve not well visualized. No tricuspid regurgitation. Pulmonic Valve Pulmonic valve not well visualized. Pericardium No pericardial effusion. Echo free space anterior to the right ventricle likely represents a fat pad. Aorta Normal size aortic. CONCLUSIONS Normal LV function Previewed by: Dr. Silvino Marion MD (Electronically Signed) Final Date: 06 March 2023 17:39
[2023-03-06] MEDS ORDERED: methylPREDNISolone SOD SUCCI 40 MG/ML 1 ML VIAL IV SCH (18:00)
[2023-03-06 20:33] LABS: Hepatitis B Surface Antigen Nonreactive
[2023-03-06 20:34] LABS: Hepatitis A Antibody IgM Nonreactive; Hepatitis B Core IgM Nonreactive; Hepatitis C IgG Antibody Nonreactive
[2023-03-06] MEDS ORDERED: MELATONIN 5 MG TABLET PO SCH (21:00)
[2023-03-06] MEDS: DOXYCYCLINE 100 MG CAP PO SCH (21:11)
[2023-03-06] MEDS: IPRATROPIUM-ALBUTEROL 3 ML NEB INHALATION SCH (21:40)
[2023-03-06 22:12] LABS: Appearance,Urine Cloudy (Clear); Bacteria,Urine Rare /hpf; Bilirubin,Urine Negative (Negative); Blood,Urine Negative (Negative); Budding Yeast,Urine Rare /hpf; Cellular Casts,Urine 4 /lpf (0); Color,Urine Yellow; Glucose,Urine (UA) Negative (Negative); Granular Casts,Urine 2 /lpf (0); Hyaline Casts,Urine 33 /lpf (0-2); Ketones,Urine 1+ (Negative); Leukocyte Esterase,Urine Negative (Negative); Mucus,Urine Many /hpf; Nitrite,Urine Negative (Negative); PH, Urine 5.5 (5.0-8.0); Protein,Urine 1+ (Negative); RBC,Urine 112 /hpf (0-5); Specific Gravity,Urine 1.031 (1.001-1.035); Squamous Epithelial Cell,Urine 3 /hpf (0-4); Urobilinogen,Urine <2.0 mg/dL (<2.0); WBC,Urine 6 /hpf (0-5)
[2023-03-07] MEDS: IPRATROPIUM-ALBUTEROL 3 ML NEB INHALATION SCH ×3 (08:10→15:51)
--- NOTE | 2023-03-07 08:37 | US ---
EXAMINATION TYPE: US abdomen limited DATE OF EXAM: 03/07/2023 COMPARISON: NONE CLINICAL INDICATION: Female, 63 years old with history of Transaminitis; pain TECHNIQUE: Multiple sonographic images of the right upper quadrant are obtained. FINDINGS: EXAM MEASUREMENTS: Liver Length: 14.2 cm Gallbladder Wall: .2 cm CBD: .4 cm Right Kidney: 11.1 x 3.8 x 4.0 cm DOVETAILER NOTES: Pancreas: Obscured by bowel gas Liver: wnl Gallbladder: No stones seen Evidence for sonographic Hernández's sign: No CBD: wnl Right Kidney: Anechoic area seen upper pole 1.9 x 1.5 x 1.8 cm. Pancreas is obscured by overlying bowel gas. Liver is within normal limits without focal lesion. No c holelithiasis, wall thickening, or pericholecystic fluid. Per spindle tester, negative sonographic Rene y sign. Common bile duct within normal limits. Right kidney demonstrate no evidence of hydronephrosis , nephrolithiasis, or contour deforming solid mass. Simple cysts identified within the upper pole. IMPRESSION: No acute process.
[2023-03-07] MEDS: DOXYCYCLINE 100 MG CAP PO SCH ×2 (09:20→17:09)
[2023-03-07] MEDS: FAMOTIDINE 20 MG/2 ML VIAL IV SCH (09:20)
--- NOTE | 2023-03-07 09:49 | P.PN ---
Subjective Progress Note Date: 03/07/23 Principal diagnosis: Palpitation The patient is a 63-year-old female patient was admitted to the hospital with agitation. Further workup was performed including an echo showed normal biventricular dimension and systolic function. No arrhythmia detected. March 07 The patient was seen and evaluated this morning. She is asymptomatic. She is stable beside the pressure being elevated as well as she is a slightly tachycardic. I'm going to start the patient on small dose of beta jeff. Otherwise from the cardiovascular standpoint of view, the patient can be discha rged home. The examination is remarkable for regular rhythm with clear breathing sounds bilaterally. Assessment Palpitation which has improved Mild sinus tachycardia Hypertension Plan Start the patient on small dose of beta jeff The patient can be discharged home from the cardiovascular standpoint of view Objective - Vital Signs Vital signs: Vital Signs Temp 98.5 F 03/07/23 07:00 Pulse 108 H 03/07/23 08:22 Resp 16 03/07/23 07:00 BP 153/75 03/07/23 07:00 Pulse Ox 99 03/07/23 07:00 FiO2 Intake & Output 03/06/23 03/07/23 03/07/23 18:59 06:59 18:59 Weight 42.638 kg Other: Voiding Method Toilet Toilet # Voids 1 - Labs CBC & Chem 7: 03/05/23 19:00 03/05/23 19:00 Labs: Abnormal Lab Results - Last 24 Hours (Table) 03/06/23 Range/Units 21:30 Urine Appearance Cloudy H (Clear) Urine Protein 1+ H (Negative) Urine Ketones 1+ H (Negative) Urine RBC 112 H (0-5) /hpf Urine WBC 6 H (0-5) /hpf Urine Bacteria Rare H (None) /hpf Hyaline Casts 33 H (0-2) /lpf Urine Mucus Many H (None) /hpf Urine Yeast (Budding) Rare H (None) /hpf
[2023-03-07] MEDS ORDERED: METOPROLOL SUCCINATE (ER) 25 MG TAB.ER.24H PO SCH (10:00)
[2023-03-07 10:08] LABS: Basophils # (M) 0 X 10*3/uL (0.00-0.10); HGB 14.6 d/dL (12.0-15.0); MCH 31.1 pg (27.0-32.0); MCHC 33.2 d/dL (32.0-37.0); MCV 93.6 FL (80.0-97.0); NRBC Per 100 WBC 0 X 10*3/uL (0.00-0.01); Platelet Count 330 X 10*3/uL (140-440); RDW 12.4 % (11.5-14.5); WBC 8.38 X 10*3/uL (4.50-10.00)
[2023-03-07 10:10] LABS: Eosinophils # (M) 1.34 X 10*3/uL (0.04-0.35); Lymphocytes # (M) 1.42 X 10*3/uL (0.90-5.00); Monocytes # (M) 0.75 X 10*3/uL (0.20-1.00); Neutrophils # (M) 4.86 X 10*3/uL (1.80-7.70); Neutrophils % (M) 58 %; RBC Morphology Normal (Normal)
[2023-03-07 10:25] LABS: Blood Urea Nitrogen 17.1 mg/dL (9.0-27.0); Calcium 8.7 mg/dL (8.7-10.3); Carbon Dioxide 26.1 mmol/L (21.6-31.8); Chloride 104 mmol/L (96-109); Glucose 96 mg/dL (70-110); Potassium 4.5 mmol/L (3.5-5.5); Sodium 139 mmol/L (135-145)
[2023-03-07 13:09] VITALS: BMI 17.2
[2023-03-07 15:13] VITALS: BP 132/71; TEMP 98.3
[2023-03-07 16:02] VITALS: PULSE 104
== END 2023-03-07 17:13 | disposition home or self-care (01) ==
LOC: EC 17:33 → 6NMEDSUR 20:48
PROVIDERS: ADMIT Internal Medicine; ATTEND Internal Medicine
DX: R00.2 Palpitations (principal); R07.89 Other chest pain; J44.0 Chronic obstructive pulmonary disease with (acute) lower respiratory infection; J20.9 Acute bronchitis, unspecified; R22.9 Localized swelling, mass and lump, unspecified; R74.01 Elevation of levels of liver transaminase levels; N17.9 Acute kidney failure, unspecified; R00.0 Tachycardia, unspecified; I10 Essential (primary) hypertension; G89.29 Other chronic pain; M54.9 Dorsalgia, unspecified; J45.909 Unspecified asthma, uncomplicated; M79.7 Fibromyalgia; F41.9 Anxiety disorder, unspecified; Z87.891 Personal history of nicotine dependence; Z90.710 Acquired absence of both cervix and uterus; Z91.018 Allergy to other foods; Z82.49 Family history of ischemic heart disease and other diseases of the circulatory system
CPT/HCPCS: 96376 ×2; 96374; 96375; 99285; 36415; 94640 ×3; 93005; 93306; 83880; 80053; 80048; 80074; 83735; 84484; 85025 ×2; 85610; 85730; 81001; 71045; 71046; 76705; 71275; G0378 ×3; J1200 ×2; J3490 ×2; J2270; J1885; Q9967

== ENCOUNTER 2023-03-12 05:07 | Observation (INO) | payer MEDICARE ==
[2023-03-12] MEDS ORDERED: SODIUM CHLORIDE 0.9% 1,000 ML IV STA (05:09)
[2023-03-12] MEDS ORDERED: IPRATROPIUM 0.5 MG/2.5 ML NEBU INHALATION STA (05:09)
[2023-03-12] MEDS ORDERED: ALBUTEROL NEBULIZED 2.5 MG/3 ML INHALATION STA (05:09)
--- NOTE | 2023-03-12 05:10 | ED ---
SOB HPI - General Stated Complaint: SOB Time Seen by Provider: 03/12/23 05:09 Source: RN notes reviewed, old records reviewed, Caregiver Mode of arrival: EMS Limitations: no limitations - History of Present Illness Initial Comments: This is a 63-year-old female to the emergency department today. Patient presents today to be ER for evaluation severe shortness of breath. Patient has severe shortness of breath here in the emergency especially with exertion and activity. Patient is of recent hospital admission with known history of COPD and is ALLERGIC to steroids. Patient states the shortness of breath is just been increasing without fever and no current chest pain she has have right lower extremity swelling and mild swelling of her left leg as well MD Complaint: shortness of breath, cough, chest pain, anxiety -: days(s) Severity: moderate Severity scale (1-10): 7 Consistency: constant Improves With: nothing Worsens With: nothing Known History Of: COPD, congestive heart failure Context: recent URI, anxiety, recent illness Associated Symptoms: chest pain - Related Data Home Medications Medication Instructions Recorded Confirmed Suvorexant [Belsomra] 5 mg PO HS PRN 03/12/23 03/12/23 Previous Rx's Medication Instructions Recorded Metoprolol Succinate (ER) [Toprol 12.5 mg PO DAILY 30 Days #60 tab 03/07/23 XL] Budesonide/Formoterol Fumarate 1 puff INHALATION BID #10.2 gm 03/13/23 [Symbicort 160-4.5 Mcg Inhaler] Levalbuterol Hfa Inhaler [Xopenex 1 - 2 puff INHALATION Q6HR PRN #9 03/13/23 Hfa Inhaler] gm Mirtazapine [Remeron] 15 mg PO HS #30 tab 03/13/23 PARoxetine [Paxil] 20 mg PO DAILY #30 tab 03/13/23 Pramipexole [Mirapex] 0.5 mg PO HS #30 tablet 03/13/23 predniSONE 10 mg PO DAILY #30 tab 03/13/23 Allergies Allergy/AdvReac Type Severity Reaction Status Date / Time gluten Allergy Severe Celiac Verified 03/12/23 08:16 egg Allergy Unknown Cough Verified 03/12/23 13:51 NSAIDS (Non-Steroidal Allergy Anaphylaxis Verified 03/12/23 08:16 Anti-Inflamma ketorolac AdvReac Dyspnea Verified 03/12/23 08:16 methylprednisolone AdvReac Dyspnea Verified 03/12/23 08:16 [From Solu-Medrol] Review of Systems ROS Statement: Those systems with pertinent positive or pertinent negative responses have been documented in the HPI. ROS Other: All systems not noted in ROS Statement are negative. Past Medical History Past Medical History: Asthma, Fibromyalgia Additional Past Medical History / Comment(s): Celiac History of Any Multi-Drug Resistant Organisms: None Reported Past Surgical History: Hysterectomy Past Psychological History: Anxiety Smoking Status: Never smoker Past Alcohol Use History: None Reported Past Drug Use History: Marijuana General Exam General appearance: alert, in no apparent distress, anxious Head exam: Present: atraumatic, normocephalic, normal inspection Eye exam: Present: normal appearance, PERRL, EOMI. Absent: scleral icterus, conjunctival injection, periorbital swelling ENT exam: Present: normal exam, mucous membranes moist Neck exam: Present: normal inspection. Absent: tenderness, meningismus, lymphadenopathy Respiratory exam: Present: respiratory distress, wheezes, accessory muscle use, decreased breath sounds, prolonged expiratory. Absent: rales, rhonchi, stridor Cardiovascular Exam: Present: regular rate, normal rhythm, normal heart sounds. Absent: systolic murmur, diastolic murmur, rubs, gallop, clicks GI/Abdominal exam: Present: soft, normal bowel sounds. Absent: distended, tenderness, guarding, rebound, rigid Extremities exam: Present: normal inspection, full ROM, normal capillary refill. Absent: tenderness, pedal edema, joint swelling, calf tenderness Back exam: Present: normal inspection Neurological exam: Present: alert, oriented X3, CN II-XII intact Psychiatric exam: Present: normal affect, normal mood Skin exam: Present: warm, dry, intact, normal color. Absent: rash Course Vital Signs 03/12/23 03/12/23 03/12/23 05:09 05:16 06:01 Temperature 97.5 F L Pulse Rate 97 97 Respiratory 16 Rate Blood Pressure 165/111 O2 Sat by Pulse 92 L 96 Oximetry 03/12/23 03/12/23 03/12/23 06:37 07:29 07:37 Temperature Pulse Rate 101 H 93 94 Respiratory 18 18 Rate Blood Pressure O2 Sat by Pulse Oximetry 03/12/23 03/12/23 03/12/23 08:02 10:00 11:42 Temperature 98.1 F Pulse Rate 85 98 79 Respiratory 18 18 16 Rate Blood Pressure 129/80 134/90 O2 Sat by Pulse 98 99 Oximetry 03/12/23 03/12/23 03/12/23 11:52 11:53 13:02 Temperature 98.1 F Pulse Rate 103 H 80 79 Respiratory 20 16 20 Rate Blood Pressure 130/90 128/77 O2 Sat by Pulse 100 99 Oximetry - Reevaluation(s) Reevaluation #1: 03/12/23 06:16 Medical record is reviewed Reevaluation #2: Patient has persistent symptoms here in the ER with increasing anxiety Reevaluation #3: Patient informed of results and questions have been answered Reevaluation #4: 03/12/23 06:16 Was pt. sent in by a medical professional or institution (KYLE Finn, DOOR BUILDER, urgent care, hospital, or correction...) When possible be specific @ -no Did you speak to anyone other than the patient for history (EMS, parent, family, police, friend...)? What history was obtained from this source @ -no Did you review nursing and triage notes (agree or disagree)? Why? @ -agree Are old charts reviewed (outside hosp., previous admission, EMS record, old EKG, old radiological studies, urgent care reports/EKG's, correction records)? Report findings @ -yes Differential Diagnosis (chest pain, altered mental status, abdominal pain women, abdominal pain men, vaginal bleeding, weakness, fever, dyspnea, syncope, headache, dizziness, GI bleed, back pain, seizure, CVA, palpatations, mental health, musculoskeletal)? @ -prior EKG interpreted by me (3pts min.). @ -yes X-rays interpreted by me (1pt min.). @ -yes CT interpreted by me (1pt min.). @ -no U/S interpreted by me (1pt. min.). @ -yes What testing was considered but not performed or refused? (CT, X-rays, U/S, labs)? Why? @ -none What meds were considered but not given or refused? Why? @ -none Did you discuss the management of the patient with other professionals (professionals i.e. KYLE Finn, DOOR BUILDER, lab, RT, psych nurse, social worker assistant, debit agent, teacher, licensing officer, case management associate)? Give summary @ -no Was smoking cessation discussed for >3mins.? @ -no Was critical care preformed (if so, how long)? @ -no Were there social determinants of health that impacted care today? How? (Homelessness, low income, unemployed, alcoholism, drug addiction, transportation, low edu. Level, literacy, decrease access to med. care, fpc, rehab)? @ -none Was there de-escalation of care discussed even if they declined (Discuss DNR or withdrawal of care, Hospice)? DNR status @ -no What co-morbidities impacted this encounter? (DM, HTN, Smoking, COPD, CAD, Cancer, CVA, ARF, Chemo, Hep., AIDS, mental health diagnosis, sleep apnea, morbid obesity)? @ -none Was patient admitted / discharged? Hospital course, mention meds given and route, prescriptions, significant lab abnormalities, going to OR and other pertinent info. @ - 63 female to the emergency department for evaluation. Patient persistent chest pain here in the ER patient will be admitted for chest pain observation completed by anxiety and shortness of breath Admitted Undiagnosed new problem with uncertain prognosis? @ -no Drug Therapy requiring intensive monitoring for toxicity (Heparin, Nitro, Insulin, Cardizem)? @ -no Were any procedures done? @ -no Diagnosis/symptom? @ -Chest pain, anxiety Acute, or Chronic, or Acute on Chronic? @ -Acute Uncomplicated (without systemic symptoms) or Complicated (systemic symptoms)? @ -Complicated Side effects of treatment? @ -no Exacerbation, Progression, or Severe Exacerbation? @ -exacerbation Poses a threat to life or bodily function? How? (Chest pain, USA, NC, pneumonia, PE, COPD, DKA, ARF, appy, cholecystitis, CVA, Diverticulitis, Homicidal, Suicidal, threat to staff... and all critical care pts) @ -yes chest pain with ACS Reevaluation #5: 03/12/23 06:16 Differential Dyspnea: Coronary syndrome, arrhythmia, tamponade, asthma, COPD, pulmonary embolism, pneumonia, pneumothorax, pulmonary effusion, anaphylaxis, diabetic ketoacidosis, flailed chest, pulmonary contusion, diaphragmatic rupture, anemia, neuromuscular, this is not meant to be an all-inclusive list. - Consultations Consultation #1: Spoke with admitting physicians who agreed to admit this patient Medical Decision Making - Medical Decision Making 63 female to the emergency department for evaluation. Patient persistent chest pain here in the ER patient will be admitted for chest pain observation completed by anxiety and shortness of breath - Lab Data Result diagrams: 03/12/23 05:19 03/12/23 05:19 Lab Results 03/12/23 03/12/23 03/12/23 Range/Units 05:19 05:19 05:19 WBC 8.2 (3.8-10.6) k/uL RBC 4.76 (3.80-5.40) m/uL Hgb 15.2 (11.4-16.0) gm/dL Hct 44.8 (34.0-46.0) % MCV 94.1 (80.0-100.0) fL MCH 32.0 (25.0-35.0) pg MCHC 34.0 (31.0-37.0) g/dL RDW 12.0 (11.5-15.5) % Plt Count 333 (150-450) k/uL MPV 8.3 Neutrophils % 55 % Lymphocytes % 23 % Monocytes % 11 % Eosinophils % 9 % Basophils % 0 % Neutrophils # 4.5 (1.3-7.7) k/uL Lymphocytes # 1.9 (1.0-4.8) k/uL Monocytes # 0.9 (0-1.0) k/uL Eosinophils # 0.7 (0-0.7) k/uL Basophils # 0.0 (0-0.2) k/uL PT 10.5 (9.0-12.0) sec INR 1.0 (<1.2) APTT 21.2 L (22.0-30.0) sec D-Dimer (<0.60) mg/L FEU Sodium 138 (137-145) mmol/L Potassium 4.4 (3.5-5.1) mmol/L Chloride 107 (98-107) mmol/L Carbon Dioxide 25 (22-30) mmol/L Anion Gap 6 mmol/L BUN 21 H (7-17) mg/dL Creatinine 0.37 L (0.52-1.04) mg/dL Est GFR (CKD-EPI)AfAm >90 (>60 ml/min/1.73 sqM) Est GFR (CKD-EPI)NonAf >90 (>60 ml/min/1.73 sqM) Glucose 94 (74-99) mg/dL Calcium 8.7 (8.4-10.2) mg/dL Magnesium 2.0 (1.6-2.3) mg/dL Total Bilirubin 0.7 (0.2-1.3) mg/dL AST 42 H (14-36) U/L ALT 45 H (4-34) U/L Alkaline Phosphatase 67 (38-126) U/L Troponin I (0.000-0.034) ng/mL NT-Pro-B Natriuret Pep 30 pg/mL Total Protein 6.9 (6.3-8.2) g/dL Albumin 3.8 (3.5-5.0) g/dL TSH (0.350-5.500) UIU/ML 03/12/23 03/12/23 03/12/23 Range/Units 05:19 05:19 06:49 WBC (3.8-10.6) k/uL RBC (3.80-5.40) m/uL Hgb (11.4-16.0) gm/dL Hct (34.0-46.0) % MCV (80.0-100.0) fL MCH (25.0-35.0) pg MCHC (31.0-37.0) g/dL RDW (11.5-15.5) % Plt Count (150-450) k/uL MPV Neutrophils % % Lymphocytes % % Monocytes % % Eosinophils % % Basophils % % Neutrophils # (1.3-7.7) k/uL Lymphocytes # (1.0-4.8) k/uL Monocytes # (0-1.0) k/uL Eosinophils # (0-0.7) k/uL Basophils # (0-0.2) k/uL PT (9.0-12.0) sec INR (<1.2) APTT (22.0-30.0) sec D-Dimer 0.34 (<0.60) mg/L FEU Sodium (137-145) mmol/L Potassium (3.5-5.1) mmol/L Chloride (98-107) mmol/L Carbon Dioxide (22-30) mmol/L Anion Gap mmol/L BUN (7-17) mg/dL Creatinine (0.52-1.04) mg/dL Est GFR (CKD-EPI)AfAm (>60 ml/min/1.73 sqM) Est GFR (CKD-EPI)NonAf (>60 ml/min/1.73 sqM) Glucose (74-99) mg/dL Calcium (8.4-10.2) mg/dL Magnesium (1.6-2.3) mg/dL Total Bilirubin (0.2-1.3) mg/dL AST (14-36) U/L ALT (4-34) U/L Alkaline Phosphatase (38-126) U/L Troponin I <0.012 (0.000-0.034) ng/mL NT-Pro-B Natriuret Pep pg/mL Total Protein (6.3-8.2) g/dL Albumin (3.5-5.0) g/dL TSH 1.380 (0.350-5.500) UIU/ML - EKG Data -: EKG Interpreted by Me (EKG is sinus 99 NJ 135 QRS 84 QTC 379) - Radiology Data Radiology results: report reviewed (Chest x-rays negative for acute disease ultrasound negative for DVT), image reviewed Disposition Clinical Impression: Chest pain, Anxiety, Asthma with acute exacerbation Disposition: ADMITTED IP TO THIS HOSP Condition: Fair Is patient prescribed a controlled substance at d/c from ED?: No Time of Disposition: 07:00
[2023-03-12 05:54] LABS: Basophils % (A) 0 %; Eosinophils # (A) 0.7 k/uL (0-0.7); Eosinophils % (A) 9 %; HCT 44.8 % (34.0-46.0); HGB 15.2 gm/dL (11.4-16.0); Lymphocytes # (A) 1.9 k/uL (1.0-4.8); Lymphocytes % (A) 23 %; MCV 94.1 fL (80.0-100.0); Mean Platelet Volume 8.3; Monocytes # (A) 0.9 k/uL (0-1.0); Monocytes % (A) 11 %; Neutrophils # (A) 4.5 k/uL (1.3-7.7); Neutrophils % (A) 55 %; Platelet Count 333 k/uL (150-450); RBC 4.76 m/uL (3.80-5.40); WBC 8.2 k/uL (3.8-10.6)
[2023-03-12 06:02] LABS: Partial Thromboplastin Time 21.2 sec (22.0-30.0); Prothrombin Time 10.5 sec (9.0-12.0)
[2023-03-12 06:03] LABS: ALT 45 U/L (4-34); AST 42 U/L (14-36); African American GFR (CKD) >90 (>60 ml/min/1.73 sqM); Albumin 3.8 g/dL (3.5-5.0); Alkaline Phosphatase 67 U/L (38-126); Anion Gap 6 mmol/L; Blood Urea Nitrogen 21 mg/dL (7-17); Calcium 8.7 mg/dL (8.4-10.2); Carbon Dioxide 25 mmol/L (22-30); Chloride 107 mmol/L (98-107); Glucose 94 mg/dL (74-99); Non-African American GFR(CKD) >90 (>60 ml/min/1.73 sqM); Potassium 4.4 mmol/L (3.5-5.1); Sodium 138 mmol/L (137-145); Total Bilirubin 0.7 mg/dL (0.2-1.3); Total Protein 6.9 g/dL (6.3-8.2)
[2023-03-12 06:09] LABS: NT-Pro-B-Type Natriuretic Pept 30 pg/mL
[2023-03-12] MEDS ORDERED: IPRATROPIUM-ALBUTEROL 3 ML NEB INHALATION STA (07:03)
[2023-03-12] MEDS ORDERED: NALOXONE 0.4 MG/ML 1 ML VIAL IVP PRN (07:03)
--- NOTE | 2023-03-12 07:25 | XR ---
EXAMINATION TYPE: XR chest 2V DATE OF EXAM: 03/12/2023 COMPARISON: 03/06/2023 HISTORY: Shortness of breath TECHNIQUE: Frontal and lateral views of the chest are obtained. FINDINGS: Scattered senescent parenchymal changes noted. Hyperinflation compatible with COPD. No evidence for infiltrate. No evidence for atelectasis. Heart size is stable. Mediastinal structures are stable and grossly unremarkable. No evidence for hilar prominence. Degenerative changes dorsal spine. Proximal right humeral bone infarct. IMPRESSION: 1. No evidence for acute pulmonary disease.
[2023-03-12] MEDS: ALBUTEROL NEBULIZED 2.5 MG/3 ML INHALATION SCH ×4 (09:02→19:38)
[2023-03-12] MEDS ORDERED: SUVOREXANT 5 MG PO PRN (10:57)
--- NOTE | 2023-03-12 11:10 | US ---
EXAMINATION TYPE: US venous doppler duplex LE RT DATE OF EXAM: 03/12/2023 10:50 AM COMPARISON: NONE CLINICAL INDICATION: Female, 63 years old with history of right calf pain; right calf pain SIDE PERFORMED: Right TECHNIQUE: The lower extremity deep venous system is examined utilizing real time linear array sonog chadwick with graded compression, doppler sonography and color-flow sonography. VESSELS IMAGED: Common Femoral Vein Deep Femoral Vein Greater Saphenous Vein * Femoral Vein Popliteal Vein Small Saphenous Vein * Proximal Calf Veins (* superficial vessels) Right Leg: No evidence of DVT as visualized IMPRESSION: Grayscale, color doppler, spectral doppler imaging performed of the deep veins of the lo wer extremities. There is normal flow, compressibility, vascular waveforms.
[2023-03-12] MEDS: METOPROLOL SUCCINATE (ER) 25 MG TAB.ER.24H PO SCH (11:53)
[2023-03-12 13:50] VITALS: RESP 16
[2023-03-12] MEDS ORDERED: ONDANSETRON 4 MG/2 ML VIAL IVP PRN (14:07)
[2023-03-12] MEDS ORDERED: LORazepam 0.5 MG TAB PO PRN (14:07)
[2023-03-12] MEDS ORDERED: ACETAMINOPHEN TAB 325 MG TAB PO PRN (14:07)
[2023-03-12 14:56] VITALS: BMI 16.2
[2023-03-12] MEDS: PARoxetine 20 MG TAB PO SCH (15:14)
[2023-03-12] MEDS: ENOXAPARIN 40 MG/0.4 ML SYRINGE SQ SCH (15:14)
[2023-03-12] MEDS: predniSONE 20 MG TAB PO SCH (15:14)
--- NOTE | 2023-03-12 16:55 | P.HPIM ---
History of Present Illness H&P Date: 03/12/23 Chief Complaint: Short of breath This is a pleasant 63-year-old patient who follows with Dr. Elvia López. Patient is discharged hospital about a week ago with asthma exacerbation. Patient went home she is feeling better. Then started getting increasingly short of breath. Wheezing. Cough. White sputum. Decreased appetite. Patient is longest time has not been able to sleep well. For years. Anxious. Patient has decreased appetite losing weight. Has not slept 4 months. Underwent a bit better in the ER after getting breathing treatments. Patient has underlying celiac disease. Has not seen a gastroneurologist. Has seen a bookstore manager. Does also have restless legs syndrome Review of systems: GEN.: Decreased appetite weight loss EYES: None HEENT: None NECK: None RESPIRATORY: As above CARDIOVASCULAR: None GASTROINTESTINAL: None GENITOURINARY: None MUSCULOSKELETAL: None LYMPHATICS: None HEMATOLOGICAL: None PSYCHIATRY: Anxious NEUROLOGICAL: Not sleeping well Past medical history to include: Asthma. Fibromyalgia. Celiac disease. Anxiety. Insomnia. Social history: Does not smoke or drink alcohol. . INVESTIGATIONS, reviewed in the clinical context: White count 8.2 hemoglobin 15.2 platelets 333 sodium 138 potassium 4.4 BUN 21 creatine 0.37 d-dimer 0.34 proBNP 30 troponin I less than 0.012 EKG tracing personally reviewed by me-normal sinus rhythm. P pulmonale. Chest x-ray film personally reviewed by me-hyperinflation Assessment and plan: -Acute obstructive asthma exacerbation Ventolin 4 times a day. Oral prednisone. -Uncontrolled anxiety disorder Paxil 20 mg day. -Chronic insomnia Ambien 5 mg daily at bedtime -Chronic celiac disease Gluten-free diet. Follow-up with Dr. Corinna Marion outpatient -Severe protein calorie malnutrition Consult dietitian. Care was discussed with the patient. Consult psychiatry. Past Medical History Past Medical History: Asthma, Fibromyalgia Additional Past Medical History / Comment(s): Celiac History of Any Multi-Drug Resistant Organisms: None Reported Past Surgical History: Hysterectomy Past Psychological History: Anxiety Smoking Status: Never smoker Past Alcohol Use History: None Reported Past Drug Use History: Marijuana Medications and Allergies Home Medications Medication Instructions Recorded Confirmed Type Metoprolol Succinate (ER) [Toprol 12.5 mg PO DAILY 30 Days #60 tab 03/07/23 03/12/23 Rx XL] Suvorexant [Belsomra] 5 mg PO HS PRN 03/12/23 03/12/23 History Allergies Allergy/AdvReac Type Severity Reaction Status Date / Time gluten Allergy Severe Celiac Verified 03/12/23 08:16 egg Allergy Unknown Cough Verified 03/12/23 13:51 NSAIDS (Non-Steroidal Allergy Anaphylaxis Verified 03/12/23 08:16 Anti-Inflamma ketorolac AdvReac Dyspnea Verified 03/12/23 08:16 methylprednisolone AdvReac Dyspnea Verified 03/12/23 08:16 [From Solu-Medrol] Physical Exam Vitals: Vital Signs Temp Pulse Resp BP Pulse Ox 03/12/23 10:00 98 18 134/90 99 03/12/23 08:02 98.1 F 85 18 129/80 98 03/12/23 07:37 94 18 03/12/23 07:29 93 18 03/12/23 06:37 101 H 03/12/23 06:01 97 03/12/23 05:16 96 03/12/23 05:09 97.5 F L 97 16 165/111 92 L Intake and Output 03/11/23 03/12/23 03/12/23 22:59 06:59 14:59 Other: Weight 40.37 kg Results CBC & Chem 7: 03/12/23 05:19 03/12/23 05:19 Labs: Abnormal Lab Results - Last 24 Hours (Table) 03/12/23 03/12/23 Range/Units 05:19 05:19 APTT 21.2 L (22.0-30.0) sec BUN 21 H (7-17) mg/dL Creatinine 0.37 L (0.52-1.04) mg/dL AST 42 H (14-36) U/L ALT 45 H (4-34) U/L
[2023-03-12] MEDS ORDERED: ZOLPIDEM 5 MG TAB PO SCH (21:00)
[2023-03-13] MEDS: ALBUTEROL NEBULIZED 2.5 MG/3 ML INHALATION SCH ×2 (03:11→12:09)
[2023-03-13 07:36] VITALS: BP 148/81; TEMP 98.1
--- NOTE | 2023-03-13 07:55 | P.CNPUL ---
History of Present Illness Consult date: 03/13/23 Requesting physician: Emmett Rg Reason for consult: COPD Chief complaint: Shortness of breath History of present illness: I am seeing this patient in new consultation today 03/13/2023 for suspected COPD/asthma exacerbation. Patient is a 63-year-old female with past medical history significant for insomnia, fibromyalgia, celiac disease. She states that she has been diagnosed with asthma in the past. She is a remote ex-smoker of over 20 years ago. When she did smoke, she smoked approximately 1 pack per day. 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 Her primary care provider is Dr. Aden López. She does not use any inhalers due to reported intolerances. She states that she does not use albuterol due to increased heart rate. She does not use Symbicort inhaler, because she states that it contains alcohol. I did not see this as a listed inactive ingredient. She does not use Advair Diskus because it contains lactose. Patient presented to the emergency room yesterday morning with severe shortness of breath. She reports that she has been feeling short of breath for the last couple days, which is accompanied with a productive cough and white sputum, subjective fevers, and "rapid heart rate". She seems anxious about medication intolerances. Patient is currently sitting up in bed, on room air, in no acute distress. There is a nasal CPAP at bedside. Chest x- ray on arrival showed hyperinflation without any acute infiltrates or evidence of pneumonia. CBC on arrival is unremarkable without any leukocytosis. D-dimer was low. BMP on arrival was unremarkable. Troponin less than 0.012. NT proBNP level. Patient is hemodynamically stable. Review of Systems REVIEW OF SYSTEMS: CONSTITUTIONAL: Denies any recent significant weight loss or weight gain. EYES: Denies change in vision. EARS, NOSE, MOUTH, THROAT: Denies headaches, denies sore throat. CARDIOVASCULAR: Denies chest pain, syncopal episodes, orthopnea, lower extremity edema. Admits intermittent chest palpitations. RESPIRATORY: See HPI. GASTROINTESTINAL: Denies change in appetite, abdominal pain, nausea and vomiting, or diarrhea GENITOURINARY: Denies hematuria, denies infections. MUSKULOSKELETAL: Denies pain, denies swelling. INTEGUMENTARY: Denies rash, denies eczema. NEUROLOGICAL: Denies recent memory loss, no recent seizure activity. PSYCHIATRIC: Denies anxiety, denies depression. HEMATOLOGIC/LYMPHATIC: Denies anemia, denies enlarged lymph node Past Medical History Past Medical History: Asthma, Fibromyalgia Additional Past Medical History / Comment(s): Celiac, chronic anxiety, depression, bronchial asthma, osteoporosis, ALLERGIC rhinitis, acid reflux, fibromyalgia, insomnia, chronic fatigue, history of ovarian cysts, history of kidney stones History of Any Multi-Drug Resistant Organisms: None Reported Past Surgical History: Hysterectomy Additional Past Surgical History / Comment(s): History of ureteral stent insertion, colonoscopy, EGD, right leg vein ablation and Lasix eye surgery Past Psychological History: Anxiety, Depression Smoking Status: Never smoker Past Alcohol Use History: None Reported Past Drug Use History: Marijuana Medications and Allergies Home Medications Medication Instructions Recorded Confirmed Type Metoprolol Succinate (ER) [Toprol 12.5 mg PO DAILY 30 Days #60 tab 03/07/23 03/12/23 Rx XL] Suvorexant [Belsomra] 5 mg PO HS PRN 03/12/23 03/12/23 History Allergies Allergy/AdvReac Type Severity Reaction Status Date / Time gluten Allergy Severe Celiac Verified 03/12/23 08:16 egg Allergy Unknown Cough Verified 03/12/23 13:51 NSAIDS (Non-Steroidal Allergy Anaphylaxis Verified 03/12/23 08:16 Anti-Inflamma ketorolac AdvReac Dyspnea Verified 03/12/23 08:16 methylprednisolone AdvReac Dyspnea Verified 03/12/23 08:16 [From Solu-Medrol] Physical Exam Vitals: Vital Signs Temp Pulse Pulse Resp BP BP Pulse Ox 03/13/23 03:20 102 H 03/13/23 03:11 111 H 03/13/23 02:26 98.2 F 96 16 142/69 95 03/12/23 20:00 67 16 03/12/23 19:06 98.2 F 87 18 168/75 97 03/12/23 13:33 98.3 F 67 16 146/65 99 03/12/23 13:02 98.1 F 79 20 128/77 99 03/12/23 11:53 80 16 03/12/23 11:52 103 H 20 130/90 100 03/12/23 11:42 79 16 03/12/23 10:00 98 18 134/90 99 03/12/23 08:02 98.1 F 85 18 129/80 98 03/12/23 07:37 94 18 03/12/23 07:29 93 18 Intake and Output 03/12/23 03/13/23 03/13/23 22:59 06:59 14:59 Other: # Voids 2 GENERAL EXAM: Alert, 63-year-old white female appearing stated age, comfortable in no apparent distress. HEAD: Normocephalic and atraumatic EYES: Normal reaction of pupils, equal size. NOSE: Clear with pink turbinates. THROAT: No erythema or exudates. NECK: No masses, no JVD. CHEST: No chest wall deformity. LUNGS: Equal air entry with expiratory wheezes heard throughout. No crackles, rhonchi, focal dullness. On room air. No conversational dyspnea or accessory muscle use.. CVS: S1 and S2 normal with no audible murmur, regular rhythm. No extra heart sounds ABDOMEN: No hepatosplenomegaly, active bowel sounds, no guarding or rigidity. SPINE: No scoliosis or deformity SKIN: No rashes CENTRAL NERVOUS SYSTEM: No focal deficits, tone is normal in all 4 extremities. EXTREMITIES: There is no peripheral edema, clubbing, or cyanosis. Peripheral pulses are intact. Results - Laboratory Findings CBC and BMP: 03/12/23 05:19 03/12/23 05:19 PT/INR, D-dimer PT 10.5 sec (9.0-12.0) 03/12/23 05:19 INR 1.0 (<1.2) 03/12/23 05:19 D-Dimer 0.34 mg/L FEU (<0.60) 03/12/23 06:49 Abnormal lab findings: Abnormal Labs 03/12/23 03/12/23 05:19 05:19 APTT 21.2 L BUN 21 H Creatinine 0.37 L AST 42 H ALT 45 H - Diagnostic Findings Chest x-ray: image reviewed Assessment and Plan Assessment: asthma exacerbation, chest x-ray is consistent with hyperinflation, no acute infiltrates or evidence of pneumonia. History of fibromyalgia History of celiac disease History of insomnia Remote ex-smoker Plan: Patient's medications, labs, chest x-ray reviewed On room air Receiving Ventolin HFA as tolerated Reports intolerances to Symbicort and Advair formulations Offered formoterol and budesonide inhalations. Patient is currently on a prednisone burst taper, reportedly intolerant to Solu- Medrol Rule out COVID-19 We will continue to follow I have personally seen and examined the patient, performed the documentation and the assessment and plan as written. Number of minutes spent on the visit:20 Time with Patient: Greater than 30
[2023-03-13] MEDS ORDERED: FORMOTEROL FUMARATE 20 MCG/2 ML NEBU INHALATION SCH (08:00)
[2023-03-13] MEDS ORDERED: BUDESONIDE 1 MG/2 ML NEBU INHALATION SCH (08:00)
--- NOTE | 2023-03-13 08:14 | P.CNPUL ---
History of Present Illness Consult date: 03/12/23 Reason for consult: dyspnea History of present illness: 63-year-old female patient, coming in with worsening shortness of breath. She is known to have bronchial asthma, and she is presenting with worsening dyspnea cough chest tightness and wheezing. She has also been complaining of diminished appetite and the patient has been losing weight. She has chronic insomnia. Chest x-ray on admission shows no acute cardiac pulmonary process and the blood work shows edematous count of 8.2 with a hemoglobin of 15, BUN is 21 with a creatinine of 0.37 and sodium levels of 138. Troponins are negative. LFTs are normal. D-dimer is at 0.34. Doppler of the lower extremity showed no evidence of any DVT. The patient maternal Symbicort on outpatient basis regarding chronic bronchial asthma. She also uses Proventil rescue inhaler mass on the basis. In regards to chronic anxiety, the patient takes Klonopin and she is also on a combination of trazodone and Belsomra for chronic anxiety. She has history of chronic fatigue syndrome, chronic anxiety, insomnia, fibromyalgia, depression, ALLERGIC rhinitis, and osteoporosis. Review of Systems GEN.: Decreased appetite weight loss EYES: None HEENT: None NECK: None RESPIRATORY: As above shortness of breath as discussed above CARDIOVASCULAR: None GASTROINTESTINAL: None GENITOURINARY: None MUSCULOSKELETAL: None, chronic fibromyalgia and body aches LYMPHATICS: None HEMATOLOGICAL: None PSYCHIATRY: Anxious and history of depression NEUROLOGICAL: Not sleeping well Past Medical History Past Medical History: Asthma, Fibromyalgia Additional Past Medical History / Comment(s): Celiac, chronic anxiety, de pression, bronchial asthma, osteoporosis, ALLERGIC rhinitis, acid reflux, fibromyalgia, insomnia, chronic fatigue, history of ovarian cysts, history of kidney stones History of Any Multi-Drug Resistant Organisms: None Reported Past Surgical History: Hysterectomy Additional Past Surgical History / Comment(s): History of ureteral stent insertion, colonoscopy, EGD, right leg vein ablation and Lasix eye surgery Past Psychological History: Anxiety, Depression Smoking Status: Never smoker Past Alcohol Use History: None Reported Past Drug Use History: Marijuana Medications and Allergies Home Medications Medication Instructions Recorded Confirmed Type Metoprolol Succinate (ER) [Toprol 12.5 mg PO DAILY 30 Days #60 tab 03/07/23 03/12/23 Rx XL] Suvorexant [Belsomra] 5 mg PO HS PRN 03/12/23 03/12/23 History Allergies Allergy/AdvReac Type Severity Reaction Status Date / Time gluten Allergy Severe Celiac Verified 03/12/23 08:16 egg Allergy Unknown Cough Verified 03/12/23 13:51 NSAIDS (Non-Steroidal Allergy Anaphylaxis Verified 03/12/23 08:16 Anti-Inflamma ketorolac AdvReac Dyspnea Verified 03/12/23 08:16 methylprednisolone AdvReac Dyspnea Verified 03/12/23 08:16 [facility] Physical Exam Vitals: Vital Signs Temp Pulse Pulse Resp BP BP Pulse Ox 03/12/23 13:33 98.3 F 67 16 146/65 99 03/12/23 13:02 98.1 F 79 20 128/77 99 03/12/23 11:53 80 16 03/12/23 11:52 103 H 20 130/90 100 03/12/23 11:42 79 16 03/12/23 10:00 98 18 134/90 99 03/12/23 08:02 98.1 F 85 18 129/80 98 03/12/23 07:37 94 18 03/12/23 07:29 93 18 03/12/23 06:37 101 H 03/12/23 06:01 97 03/12/23 05:16 96 03/12/23 05:09 97.5 F L 97 16 165/111 92 L Intake and Output 03/12/23 03/12/23 03/12/23 06:59 14:59 22:59 Other: # Voids 1 Weight 40.37 kg 40.37 kg The patient appeared well nourished and normally developed. Vital signs as documented. Head exam is unremarkable. No scleral icterus or corneal arcus noted. Neck is without jugular venous distension, thyromegaly, or carotid bruits. Carotid upstrokes are brisk bilaterally. Lungs are clear to auscultation and percussion. Cardiac exam reveals the PMI to be normally sized and situated. Rhythm is regular. First and second heart sounds normal. No murmurs, rubs or gallops. Abdominal exam reveals normal bowel sounds, no masses, no organomegaly and no aortic enlargement. Extremities are nonedematous and both femoral and pedal pulses are normal. Examination of the skin revealed no evidence of significant rashes, suspicious appearing nevi or other concerning lesions.. Neurologically, the patient is awake and alert and the patient does not have any focal neurological deficit. Cranial nerves are essentially intact. Results - Laboratory Findings CBC and BMP: 03/12/23 05:19 03/12/23 05:19 PT/INR, D-dimer PT 10.5 sec (9.0-12.0) 03/12/23 05:19 INR 1.0 (<1.2) 03/12/23 05:19 D-Dimer 0.34 mg/L FEU (<0.60) 03/12/23 06:49 Abnormal lab findings: Abnormal Labs 03/12/23 03/12/23 05:19 05:19 APTT 21.2 L BUN 21 H Creatinine 0.37 L AST 42 H ALT 45 H - Diagnostic Findings Chest x-ray: image reviewed Assessment and Plan Plan: Acute exacerbation of chronic bronchial asthma, chest x-ray is negative. The patient is a lifetime nonsmoker. Shortness of breath secondary to above Chronic insomnia Chronic fibromyalgia Chronic anxiety/depression ALLERGIC rhinitis Osteoporosis Plan Continue DuoNeb nebulized treatments [id number] We saw the patient on Symbicort maintenance IV fluids Start the patient on prednisone burst taper Resume all medication We'll follow
[2023-03-13] MEDS: PARoxetine 20 MG TAB PO SCH (09:47)
[2023-03-13] MEDS: ENOXAPARIN 40 MG/0.4 ML SYRINGE SQ SCH (09:47)
[2023-03-13] MEDS: METOPROLOL SUCCINATE (ER) 25 MG TAB.ER.24H PO SCH (09:47)
[2023-03-13] MEDS: predniSONE 20 MG TAB PO SCH (09:47)
[2023-03-13] MEDS ORDERED: SODIUM FERRIC GLUCONAT-SUCROSE 125 MG in SODIUM CHLORIDE 0.9% 100 ML IVPB ONE (11:49)
[2023-03-13 12:26] VITALS: PULSE 84
--- NOTE | 2023-03-13 13:27 | P.CN ---
Psychiatric Consult - . Consult date: 03/13/23 Consult:: 03/13/23 13:27 IDENTIFYING DATA: This patient is a , retired, 63 year old CF with a significant history of celiac disease and fibromyalgia who presents to the hospital for shortness of breath. HISTORY OF PRESENT ILLNESS: The patient presented to the hospital on 03/12/23 with a chief complaint of shortness of breath. The patient was admitted medically and managed for asthma exacerbation. Psychiatry has been consulted for evaluation and management of severe anxiety. Presently the patient is her Yfn Kaur. Patient is agreeable having him present for the psychiatric interview. The patient reports that she has gone "4 months" with little to no sleep. She does express elevated anxiety and constantly "thinking about anything and everything at night" that keeps her up. Despite this, the patient is not reporting any significant symptoms of depression aside from low appetite. She is denying any anhedonia, hopelessness, helplessness, change in hygiene and grooming, or any suicidal or homicidal ideation, intention, and/or plan. The patient is not reporting any significant symptoms of bipolar disorder and denies any increased goal-directed activity, grandiosity, or increased impulsivity. She reports no history of auditory or visual hallucinations. She denies any paranoia or other delusions. The patient does report that she has been dealing with marital stressors in terms of communication between her and her however is acknowledging that this is something to be dealt with in the outpatient setting. She expresses no concerns for her safety. PAST PSYCHIATRIC HISTORY: Patient has a history of anxiety. She reports that she was briefly prescribed Prozac in the past. She reports that she did not feel well when she was on antidepressants. Patient denies any previous psychiatric hospitalizations. Patient denies any psychiatric outpatient follow- up. Patient denies any history of suicide attempts in the past. PAST MEDICAL HISTORY: Past Medical History: Asthma, Fibromyalgia Additional Past Medical History / Comment(s): Celiac History of Any Multi-Drug Resistant Organisms: None Reported Past Surgical History: Hysterectomy Past Psychological History: Anxiety Smoking Status: Never smoker Past Alcohol Use History: None Reported Past Drug Use History: Marijuana ALLERGIES: Allergies Allergy/AdvReac Type Severity Reaction Status Date / Time gluten Allergy Severe Celiac Verified 03/12/23 08:16 egg Allergy Unknown Cough Verified 03/12/23 13:51 NSAIDS (Non-Steroidal Allergy Anaphylaxis Verified 03/12/23 08:16 Anti-Inflamma ketorolac AdvReac Dyspnea Verified 03/12/23 08:16 methylprednisolone AdvReac Dyspnea Verified 03/12/23 08:16 [From Solu-Medrol] CHEMICAL DEPENDENCY HISTORY: Patient denies any tobacco, alcohol, marijuana, or illicit drug use. She stopped marijuana 5 months ago. FAMILY PSYCHIATRIC/SUBSTANCE USE HISTORY: No reported family psychiatric history. SOCIAL HISTORY: Patient is . She is currently on her second marriage. She is a retired hairdresser. She reports she is Baptism. She denies any service or legal history. MENTAL STATUS EXAM: General Appearance: Patient appears to be stated age is alert, pleasant, and cooperative. Patient appears to have good hygiene and grooming wearing hospital gown with good eye contact. Behavior: Patient is calmly lying in bed without any agitated behavior. Speech: Patient's speech is fluent and nonpressured. Mood/Affect: Patient reports their mood is "feeling okay", affect is congruent, slightly expansive Suicidality/Homicidality: Patient vehemently denies any suicidal or homicidal ideation, intention, and/or plan Perceptions: Patient denies any visual hallucinations and denies any auditory hallucinations Though content/process: There is no evidence of any delusional thought content and thought process is linear and goal-directed. Memory and concentration: AOX3, grossly intact for the purposes of this session. Can spell "WORLD" backwards Judgment and insight: Fair Vital Signs Temp 98.1 F 03/13/23 07:00 Pulse 84 03/13/23 12:19 Resp 16 03/13/23 07:00 BP 148/81 03/13/23 07:00 Pulse Ox 96 03/13/23 07:00 FiO2 Intake & Output 03/12/23 03/13/23 03/13/23 18:59 06:59 18:59 Weight 40.37 kg 40.37 kg Other: # Voids 1 2 Laboratory Results - Last 24 Hours 03/12/23 05:19 TSH 1.380 IMPRESSIONS: Anxiety disorder, unspecified Insomnia Celiac disease Fibromyalgia PLAN: -At this time patient DOES NOT meet criteria for inpatient psychiatric admission. The patient is not presenting with imminent risk of harm to self or others. She is not overtly manic or psychotic. She has no prior attempts at suicide. -Delirium precautions recommended with patient including - avoiding use of narcotics and GEOLOGY PROFESSOR sedatives, limit anticholinergic medications when possible, frequent re-orientation, minimize use of restraints, open window shades during the day and close them at night -Would recommend the following medication changes/additions: Agree with plan to use Paxil to address overall anxiety and belsomra for insomnia. May consider the use of Remeron for anxiety/insomnia/appetite stimulation -Recommend outpatient follow-up. -Patient is cleared psychiatrically for discharge. Psychiatry will sign off at this point, please contact with any questions. 03/13/23 13:27
--- NOTE | 2023-03-13 18:27 | P.DS ---
Providers Date of admission: 03/12/23 07:05 Expected date of discharge: 03/13/23 Attending physician: Emmett Rg Consults: 03/12/23 14:06 Consult Physician Routine Consulting Provider: Sugar Britt Consult Reason/Comments: asthma Do you want consulting provider notified?: Yes 03/12/23 16:50 Consult Physician Routine Consulting Provider: Torsten Tiwari Consult Reason/Comments: Severe anxiety insomnia Do you want consulting provider notified?: Yes Primary care physician: Elvia López [facility] Course: Chief Complaint: Short of breath This is a pleasant 63-year-old patient who follows with Dr. Elvia López. Patient is discharged hospital about a week ago with asthma exacerbation. Patient went home she is feeling better. Then started getting increasingly short of breath. Wheezing. Cough. White sputum. Decreased appetite. Patient is longest time has not been able to sleep well. For years. Anxious. Patient has decreased appetite losing weight. Has not slept 4 months. Underwent a bit better in the ER after getting breathing treatments. Patient has underlying celiac disease. Has not seen a gastroneurologist. Has seen a beauty counselor. Does also have restless legs syndrome 03/13/2023: Patient is feeling much better. I did also more calm started on Paxil yesterday. Did not sleep felt. Still having restless legs syndrome. Mirapex 0.5 mg daily at bedtime prescribed for the same. We'll discharge the patient home on Symbicort and Xopenex. Prednisone taper. Patient seen by psychiatry. Prescription for Remeron 15 mg sent. Did call the patient at home and discuss. Patient also follows Dr. Corinna Marion for her due to GI issues. Patient scheduled to see Dr. Sifuentes from pulmonary. Discussion and discharge planning more than 35 minutes Physical examination: VITAL SIGNS: 98.1, 76, 16, 140/81, 96% room air GENERAL: BMI 16.3, comfortable EYES: Pupils equal. Conjunctiva normal. HEENT: External appearance of nose and ears normal, oral cavity grossly normal. NECK: JVD not raised; masses not palpable. HEART: First and second heart sounds are normal; no edema. LUNGS: Respiratory rate normal; decreased breath sounds. ABDOMEN: Soft, nontender, liver spleen not palpable, no masses palpable. PSYCH: Alert and oriented x3; mood and affect less anxiousl. MUSCULOSKELETAL:No Clubbing/cyanosis;muscles-grossly intact. Decreased muscle mass. Bony prominences. Past medical history to include: Asthma. Fibromyalgia. Celiac disease. Anxiety. Insomnia. Social history: Does not smoke or drink alcohol. . INVESTIGATIONS, reviewed in the clinical context: White count 8.2 hemoglobin 15.2 platelets 333 sodium 138 potassium 4.4 BUN 21 creatine 0.37 d-dimer 0.34 proBNP 30 troponin I less than 0.012 EKG tracing personally reviewed by me-normal sinus rhythm. P pulmonale. Chest x-ray film personally reviewed by me-hyperinflation Assessment and plan: -Acute obstructive asthma exacerbation: Better Ventolin 4 times a day. Oral prednisone. Discharge home on Xopenex when necessary. Symbicort. Prednisone taper. -Anxiety disorder, unspecified Paxil 20 mg day. -Chronic insomnia Remeron 50 mg by mouth daily at bedtime -Chronic celiac disease Gluten-free diet. Follow-up with Dr. Corinna Marion outpatient -Severe protein calorie malnutrition Consult dietitian. Follow-up with dietitian -Restless legs syndrome Mirapex 0.5 mg by mouth daily at bedtime Disposition: Home Plan - Discharge Summary Discharge Rx Participant: No New Discharge Prescriptions: New Budesonide/Formoterol Fumarate [Symbicort 160-4.5 Mcg Inhaler] 1 puff INHALATION BID #10.2 gm Mirtazapine [Remeron] 15 mg PO HS #30 tab PARoxetine [Paxil] 20 mg PO DAILY #30 tab predniSONE 10 mg PO DAILY #30 tab Levalbuterol Hfa Inhaler [Xopenex Hfa Inhaler] 1 - 2 puff INHALATION Q6HR PRN #9 gm PRN Reason: Wheezing Pramipexole [Mirapex] 0.5 mg PO HS #30 tablet Continue Metoprolol Succinate (ER) [Toprol XL] 12.5 mg PO DAILY 30 Days #60 tab Suvorexant [Belsomra] 5 mg PO HS PRN PRN Reason: Insomnia Discharge Medication List Metoprolol Succinate (ER) [Toprol XL] 12.5 mg PO DAILY 30 Days #60 tab 03/07/23 [Rx] Suvorexant [Belsomra] 5 mg PO HS PRN 03/12/23 [History] Budesonide/Formoterol Fumarate [Symbicort 160-4.5 Mcg Inhaler] 1 puff INHALATION BID #10.2 gm 03/13/23 [Rx] Levalbuterol Hfa Inhaler [Xopenex Hfa Inhaler] 1 - 2 puff INHALATION Q6HR PRN #9 gm 03/13/23 [Rx] Mirtazapine [Remeron] 15 mg PO HS #30 tab 03/13/23 [Rx] PARoxetine [Paxil] 20 mg PO DAILY #30 tab 03/13/23 [Rx] Pramipexole [Mirapex] 0.5 mg PO HS #30 tablet 03/13/23 [Rx] predniSONE 10 mg PO DAILY #30 tab 03/13/23 [Rx] Follow up Appointment(s)/Referral(s): Ysabel Marion MD [STAFF PHYSICIAN] - 1 Week (gluten) Elvia López MD [Primary Care Provider] - 1-2 days Rah Ramos DO [Doctor of Osteopathic Medicine] - 1 Week (has appt scheduled on 03/30 per patient) Patient Instructions/Handouts: Anxiety (GEN) Discharge Disposition: HOME SELF-CARE
[2023-03-13] MEDS ORDERED: MIRTAZAPINE 15 MG TAB PO SCH (21:00)
== END 2023-03-13 14:47 | disposition home or self-care (01) ==
LOC: EC 05:07 → 6NMEDSUR 07:05
PROVIDERS: ADMIT Hospitalist; ATTEND Hospitalist
DX: J44.1 Chronic obstructive pulmonary disease with (acute) exacerbation (principal); F41.9 Anxiety disorder, unspecified; M79.7 Fibromyalgia; F51.04 Psychophysiologic insomnia; G25.81 Restless legs syndrome; E43 Unspecified severe protein-calorie malnutrition; Z68.1 Body mass index [BMI] 19.9 or less, adult; M81.0 Age-related osteoporosis without current pathological fracture; J30.9 Allergic rhinitis, unspecified; F32.A Depression, unspecified; I50.9 Heart failure, unspecified; Z87.891 Personal history of nicotine dependence; Z79.51 Long term (current) use of inhaled steroids; Z79.899 Other long term (current) drug therapy; Z88.8 Allergy status to other drugs, medicaments and biological substances; Z91.012 Allergy to eggs; Z91.018 Allergy to other foods; Z98.890 Other specified postprocedural states
CPT/HCPCS: 96365; 96372 ×2; 99285; 36415; 94640 ×4; 93005; 85379; 83880; 80053; 84443; 83735; 84484; 85025; 85610; 85730; 71046; 93971; G0378 ×2; J1650 ×2; J2916; J7512 ×2

== ENCOUNTER → 2023-06-18 | Outpatient (CLI) | payer MEDICARE ==
[2023-06-18 15:24] LABS: Basophils % (A) 1 %; Eosinophils # (A) 0.7 k/uL (0-0.7); Eosinophils % (A) 9 %; HCT 48.9 % (34.0-46.0); HGB 16.1 gm/dL (11.4-16.0); Lymphocytes % (A) 27 %; MCH 31.3 pg (25.0-35.0); MCHC 32.9 g/dL (31.0-37.0); Mean Platelet Volume 9.2; Monocytes # (A) 0.7 k/uL (0-1.0); Monocytes % (A) 10 %; Neutrophils % (A) 52 %; Platelet Count 335 k/uL (150-450); RBC 5.14 m/uL (3.80-5.40); RDW 12.5 % (11.5-15.5); WBC 7.6 k/uL (3.8-10.6)
[2023-06-18 15:28] LABS: Total Eosinophil Count 693 #EOS/uL (150-300)
== END | disposition home or self-care (01) ==
LOC: LABWHC1 14:11
PROVIDERS: ATTEND Internal Medicine
DX: J45.909 Unspecified asthma, uncomplicated (principal)
CPT/HCPCS: 36415; 82785; 85008; 85025